=== PATIENT | male | born 1950 | race Caucasian/White ===

== ENCOUNTER → 2018-05-26 14:59 | Outpatient (CLI) | payer MEDICARE, OTHER, SELFPAY ==
--- NOTE | 2018-05-26 | DI.MRI.S_ITS ---
PROCEDURE: MR LUMBAR SPINE WO CON INDICATIONS: LUMBAR STRAIN TECHNIQUE: Noncontrast sagittal T1 spin echo and T2 fast echo, sagittal STIR, axial T1 and T2 fast spin echo through the lumbar spine. In cases with scoliosis, additional coronal T2 fast spin echo may be performed. COMPARISON: [facility], MR, L-SPINE WITHOUT CONTRAST, 01/23/2017, 12:00. FINDINGS: Image quality: Excellent. Alignment and Curvature: There is normal bony alignment. Bone Marrow: Marrow is of normal overall signal. No acute vertebral body compression fractures. Spinal Cord: Conus medullaris terminates at the T12 level. Visualized cord demonstrates normal signal and size. Paraspinous Soft Tissues: No paravertebral masses. L1-L2: Mild disc bulge. Mild facet and ligamentum flavum hypertrophy. No canal stenosis. No neural foraminal narrowing. L2-L3: Mild disc desiccation and height loss. Broad-based disc bulge. Moderate facet and ligamentum flavum hypertrophy. Mild canal stenosis. Mild right foraminal stenosis. No left neuroforaminal narrowing. L3-L4: Moderate disc desiccation and height loss. Broad-based disc bulge. Moderate facet and ligamentum flavum hypertrophy. No canal stenosis. Mild right and moderate left foraminal stenosis. L4-L5: Broad-based disc bulge. Moderate facet and ligamentum flavum hypertrophy. Mild canal stenosis. Moderate bilateral neural foraminal stenosis. L5-S1: Mild disc bulge. Moderate facet sclerosis. No canal stenosis. Severe bilateral foraminal stenosis. IMPRESSION: 1. Multilevel disc desiccation and height loss most severe at L3-4. 2. Multilevel broad-based disc bulges and facet and ligamentum flavum hypertrophy with resultant mild canal stenosis at L2-3 and L4-5. 3. Moderate left foraminal stenosis at L3-4, moderate bilateral foraminal stenosis at L4-5, and severe bilateral foraminal stenosis at L5-S1. Dictated by: Vivien Morrell M.D. on 05/26/2018 at 16:37 Approved by: Vivien Morrell M.D. on 05/26/2018 at 16:41
== END ==
PROVIDERS: PCP Family Medicine; Visit Provider Orthopaedic Surgery
DX: S39.012A Strain of muscle, fascia and tendon of lower back, initial encounter (principal); M51.26 Other intervertebral disc displacement, lumbar region; M48.061 Spinal stenosis, lumbar region without neurogenic claudication; M48.07 Spinal stenosis, lumbosacral region
CPT/HCPCS: 72148

== ENCOUNTER → 2019-03-25 15:44 | Outpatient (CLI) | payer MEDICARE, OTHER, SELFPAY | PROVIDERS: PCP Family Medicine; Visit Provider Physician Assistant | DX: L72.3 Sebaceous cyst (principal) | CPT/HCPCS: 87070; 87075; 87205 ==

== ENCOUNTER → 2019-05-17 07:00 | Outpatient (CLI) | payer MEDICARE, OTHER, SELFPAY ==
[2019-05-17 07:54] LABS: Alanine Aminotransferase 48 IU/L (21-72); Albumin 4.2 g/dL (3.5-5.0); Albumin Globulin Ratio 1.8 (1.0-2.8); Alkaline Phosphatase 68 U/L (38-126); Aspartate Aminotransferase 43 IU/L (17-59); BUN Creatinine Ratio 18.6 (6-22); Bilirubin Total 0.5 mg/dL (0.2-1.3); Blood Urea Nitrogen 13 mg/dL (9-20); Calcium 9.1 mg/dL (8.4-10.2); Carbon Dioxide 24 mmol/L (22-32); Chloride 106 mmol/L (98-107); Cholesterol 206 mg/dL (140-199); Estimated Glomerular Filt Rate > 60.0 mL/min (>60); Globulin 2.4 g/dL (1.7-4.1); Glucose 124 mg/dL (80-110); HDL Cholesterol 62 mg/dL (40-60); HEMOLYSIS < 15 (0-50); LDL Cholesterol Calculated 131 mg/dL (<100); Potassium 4.2 mmol/L (3.4-5.1); Sodium 139 mmol/L (137-145); Total Protein 6.6 g/dL (6.3-8.2); Triglycerides 67 mg/dL (35-150)
[2019-05-17 08:25] LABS: Prostate Specific Antigen Scrn 2.03 ng/mL (0.1-4.0)
[2019-05-17 08:29] LABS: Free T3, Triiodothyronine Free 3.45 pg/mL (2.77-5.27); Free T4, Direct Thyroxine 0.91 ng/dL (0.78-2.19)
[2019-05-17 08:42] LABS: Thyroid Stimulating Hormone 1.22 uIU/mL (0.47-4.68)
== END ==
PROVIDERS: PCP Nurse Practitioner; Visit Provider Nurse Practitioner
DX: Z12.5 Encounter for screening for malignant neoplasm of prostate (principal); Z13.1 Encounter for screening for diabetes mellitus; Z13.6 Encounter for screening for cardiovascular disorders; R63.4 Abnormal weight loss
CPT/HCPCS: 36415; 80053; 80061; 84439; 84443; 84481; G0103

== ENCOUNTER → 2019-05-24 07:57 | Outpatient (CLI) | payer MEDICARE, OTHER, SELFPAY ==
[2019-05-24 09:16] LABS: Hemoglobin A1C% w Est Avg Glu 5.3 % (4.0-6.0)
[2019-05-24 09:23] LABS: Glucose 121 mg/dL (80-110)
== END ==
PROVIDERS: PCP Nurse Practitioner; Visit Provider Nurse Practitioner
DX: R73.01 Impaired fasting glucose (principal)
CPT/HCPCS: 36415; 82947; 83036

== ENCOUNTER → 2019-09-14 06:54 | Outpatient (CLI) | payer MEDICARE, OTHER, SELFPAY ==
[2019-09-14 08:36] LABS: Hemoglobin A1C% w Est Avg Glu 5.2 % (4.0-6.0)
[2019-09-14 08:39] LABS: Glucose 124 mg/dL (80-110)
== END ==
PROVIDERS: PCP Nurse Practitioner; Visit Provider Nurse Practitioner
DX: R73.9 Hyperglycemia, unspecified (principal)
CPT/HCPCS: 36415; 82947; 83036

== ENCOUNTER → 2019-10-26 15:50 | Outpatient (CLI) | payer MEDICARE, OTHER, SELFPAY ==
--- NOTE | 2019-10-26 | DI.MRI.S_ITS ---
PROCEDURE: MR LUMBAR SPINE WO/W CON INDICATIONS: Other intervertebral disc degeneration TECHNIQUE: Noncontrast sagittal T1 spin echo and T2 fast spin echo, sagittal STIR, axial T1 and T2 fast spin echo through the lumbar spine. In cases with scoliosis, additional coronal T2 fast spin echo may be performed. After the administration of contrast, sagittal and axial T1 spin echo with fat saturation through the lumbar spine. COMPARISON: [facility], MR, MR LUMBAR SPINE WO CON, 05/26/2018, 15:18. [facility], CR, XR LUMBAR SPINE 2 OR 3 VIEWS, 10/14/2019, 14:10. FINDINGS: Image quality: Excellent. Alignment and curvature: 5 lumbar type vertebral bodies are present by plain film. Mild grade 1 retrolisthesis of L2 on L3, L3 on L4, and L5 on S1. Marrow: Marrow is of normal overall signal. No acute vertebral body compression fractures. No suspicious marrow enhancement. Mild reactive signal within the endplates adjacent to the L2-L3, L3-L4, and L5-S1 intervertebral discs. Posterior L2 hemangioma. Spinal cord: Conus medullaris terminates at the L1-L2 disc space level. Visualized spinal cord demonstrates normal signal, without suspicious enhancement. Paraspinous soft tissues: No paravertebral masses or abnormal enhancement. L1-L2: Mild facet and ligament flavum hypertrophy. Mild epidural lipomatosis. Mild canal stenosis. No foraminal stenosis. No change. L2-L3: Mild disc desiccation and diffuse disc bulge. Mild facet and ligamentum flavum hypertrophy bilaterally. Mild epidural lipomatosis. Mild canal stenosis. Mild bilateral foraminal stenosis. L3-L4: Mild disc height loss. Moderate disc desiccation. Mild diffuse disc bulge/osteophyte. Mild facet hypertrophy bilaterally. Mild epidural lipomatosis. Mild canal stenosis. Mild bilateral foraminal stenosis. No change. L4-L5: The mild disc desiccation and diffuse disc bulge. Mild facet and ligamentum flavum hypertrophy bilaterally. Mild canal stenosis. Moderate subarticular foraminal stenosis bilaterally. No change. L5-S1: Moderate disc height loss and desiccation. Mild diffuse disc bulge. Mild bilateral facet hypertrophy. Mild canal stenosis. Moderate subarticular foraminal stenosis bilaterally. No change. IMPRESSION: 1. Multilevel degenerative disc and facet disease, as well as ligamentum flavum hypertrophy and epidural lipomatosis. 2. Mild multilevel canal stenoses. 3. Multilevel foraminal stenoses, worst at L4-L5 and L5-S1 where there are moderate foraminal stenoses. Dictated by: Abdirashid Rodas M.D. on 10/27/2019 at 8:33 Approved by: Abdirashid Rodas M.D. on 10/27/2019 at 8:46
== END ==
PROVIDERS: PCP Nurse Practitioner; Referring Provider Nurse Practitioner; Visit Provider Orthopaedic Surgery
DX: M51.36 Other intervertebral disc degeneration, lumbar region (principal); M51.37 Other intervertebral disc degeneration, lumbosacral region; M48.061 Spinal stenosis, lumbar region without neurogenic claudication; M48.07 Spinal stenosis, lumbosacral region; E88.2 Lipomatosis, not elsewhere classified
CPT/HCPCS: 72158; A9579

== ENCOUNTER → 2021-01-11 12:49 | Outpatient (CLI) | payer MEDICARE, OTHER, SELFPAY ==
--- NOTE | 2021-01-11 | DI.MRI.S_ITS ---
PROCEDURE: MR CERVICAL SPINE WO CON INDICATIONS: Spinal stenosis, cervical region TECHNIQUE: Noncontrast sagittal T1 spin echo and T2 fast spin echo, sagittal STIR, foraminal oblique sagittal T2 fast spin echo, and axial gradient echo or T2 fast spin echo through the cervical spine. COMPARISON: [facility] [place], CR, XR CERVICAL SPINE WITH OBLIQUES, 12/31/2020, 9:44. FINDINGS: Image quality: This examination is limited by involuntary motion artifact. Alignment and Curvature: There is straightening of the normal cervical lordosis. Minimal retrolisthesis is seen at the C5-C6 level. Bone Marrow: Marrow demonstrates normal overall signal. Spinal Cord: Visualized spinal cord has normal size and signal. No cerebellar tonsillar herniation. Paraspinous Soft Tissues: No paravertebral masses. Prevertebral soft tissues are normal in thickness. C2-C3: No significant abnormality is seen. C3-C4: The disc height is well-preserved. Loss of disc signal is seen at this level. A mild degree of generalized disc osteophyte complex is seen. Moderate facet joint hypertrophy is seen. Moderate bilateral neural foraminal narrowing is seen. Minimal central canal narrowing is seen. C4-C5: The disc height is well-preserved. Loss of disc signal is seen at this level. Mild to moderate disc osteophyte complex is seen. Moderate facet joint hypertrophy is seen. There is at least moderate right-sided and [id number] left-sided neural foraminal narrowing seen. Minimal central canal narrowing is seen. C5-C6: Moderate loss of disc height is seen. Loss of disc signal is seen. At least moderate disc osteophyte complex is seen, which is eccentric to the left. Moderate facet joint hypertrophy is seen. There is moderate to severe bilateral neural foraminal narrowing seen. Moderate to severe central canal narrowing is seen, with associated mass effect upon the ventral spinal cord, as on series 4, image 29. C6-C7: [id number] loss of disc height and disc signal can be seen. At least moderate disc osteophyte complex is seen at this level. Uncovertebral joint hypertrophy is seen at this level. Moderate facet hypertrophy is seen, left worse than right. There is moderate to severe bilateral neural foraminal narrowing at this level. Moderate central canal narrowing is seen. There is associated mass effect upon the ventral spinal cord. C7-T1: The disc height and disc signal are relatively well preserved. A mild degree of generalized disc osteophyte complex is seen. Mild facet joint hypertrophy is seen. There is moderate left-sided and mild right-sided neural foraminal narrowing seen. Minimal central canal narrowing is seen. IMPRESSION: Cervical spine degenerative changes are seen, which are worst at C5-C6. Dictated by: Royer Sanchez M.D. on 01/11/2021 at 12:55 Approved by: Royer Sanchez M.D. on 01/11/2021 at 12:59
== END ==
PROVIDERS: PCP Nurse Practitioner; Referring Provider Physical Medicine & Rehabilitation Pain Medicine; Visit Provider Physical Medicine & Rehabilitation Pain Medicine
DX: M48.02 Spinal stenosis, cervical region (principal); M50.322 Other cervical disc degeneration at C5-C6 level
CPT/HCPCS: 72141

== ENCOUNTER → 2021-06-28 18:53 | Outpatient (CLI) | payer MEDICARE, OTHER, SELFPAY | PROVIDERS: PCP Nurse Practitioner; Visit Provider Physician Assistant | DX: L72.9 Follicular cyst of the skin and subcutaneous tissue, unspecified (principal) | CPT/HCPCS: 87070; 87075; 87205 ==

== ENCOUNTER → 2022-02-11 07:43 | Outpatient (CLI) | payer MEDICARE, OTHER, SELFPAY ==
--- NOTE | 2022-02-11 | DI.MRI.S_ITS ---
PROCEDURE: MR LUMBAR SPINE WO CON INDICATIONS: Radiculopathy, lumbar region TECHNIQUE: Noncontrast sagittal T1 spin echo and T2 fast echo, sagittal STIR, and T2 fast spin echo through the lumbar spine. In cases with scoliosis, additional coronal T2 fast spin echo may be performed. COMPARISON: [facility], MR, MR LUMBAR SPINE WO/W CON, 10/26/2019, 16:00. [facility] [place], CR, XR LUMBAR SPINE WITH OBLIQUES PLUS FLEXION EXTENSION, 01/28/2022, 13:13. [facility], MR, MR LUMBAR SPINE WO CON, 05/26/2018, 15:18. FINDINGS: Image quality: Excellent. Alignment and Curvature: 5 lumbar type vertebral bodies are present by plain film. 2 mm of retrolisthesis of L2 on L3 and L3 on L4. 2 mm of retrolisthesis of L5 on S1. Bone Marrow: Marrow is of normal overall signal. No acute vertebral body compression fractures. Spinal Cord: Conus medullaris terminates at the L1-L2 disc space level. Visualized cord demonstrates normal signal and size. Paraspinous Soft Tissues: No paravertebral masses. T12-L1: Normal appearance. L1-L2: Mild facet and ligamentum flavum hypertrophy. Mild epidural lipomatosis. Mild canal stenosis. No foraminal stenosis. No change. L2-L3: Mild disc desiccation and diffuse disc bulge. Mild facet and ligamentum flavum hypertrophy. Mild epidural lipomatosis. Mild canal stenosis and mild bilateral foraminal stenosis. No significant change. L3-L4: Mild disc height loss. Moderate disc desiccation. Mild diffuse disc bulge. Mild facet hypertrophy and epidural lipomatosis. Mild canal stenosis. Increased, moderate to severe left foraminal stenosis with new mild left L3 nerve root compression. No change in mild right foraminal stenosis. L4-L5: Mild disc desiccation and diffuse disc bulge. Mild facet and ligamentum flavum hypertrophy. Mild canal stenosis. Moderate bilateral subarticular foraminal stenosis. No significant change. L5-S1: Moderate disc height loss. Mild disc desiccation and diffuse disc bulge. Mild facet hypertrophy bilaterally. Mild canal stenosis. Increased, moderate to severe bilateral foraminal stenosis. Bilateral L5 nerve root compression, new since the prior examination. IMPRESSION: 1. High-level lumbar 2. Mild multilevel canal stenoses. 3. Multilevel foraminal stenoses, worst at L3-L4 and L4-L5 where there is associated intraforaminal nerve root compression. Recommend correlation with clinical symptoms to ascertain relevance of these findings. Dictated by: Abdirashid Rodas M.D. on 02/11/2022 at 8:44 Approved by: Abdirashid Rodas M.D. on 02/11/2022 at 8:49
== END ==
PROVIDERS: PCP Nurse Practitioner; Referring Provider Physical Medicine & Rehabilitation Pain Medicine; Visit Provider Physical Medicine & Rehabilitation Pain Medicine
DX: M54.16 Radiculopathy, lumbar region (principal); M48.061 Spinal stenosis, lumbar region without neurogenic claudication; M48.07 Spinal stenosis, lumbosacral region
CPT/HCPCS: 72148

== ENCOUNTER → 2022-03-04 10:07 | Outpatient (CLI) | payer MEDICARE, OTHER, SELFPAY ==
--- NOTE | 2022-03-04 | DI.CT.S_ITS ---
PROCEDURE: CT LUMBAR SPINE WO CON INDICATIONS: Spinal stenosis, lumbar region TECHNIQUE: Noncontrast 3 mm thick sections acquired from the T12 level to the sacrum. Sagittal and coronal reformats were constructed. For radiation dose reduction, the following was used: automated exposure control. COMPARISON: [facility], MR, MR LUMBAR SPINE WO CON, 02/11/2022, 7:58. [facility] [place], CR, XR LUMBAR SPINE WITH OBLIQUES PLUS FLEXION EXTENSION, 01/28/2022, 13:13. FINDINGS: Image quality: Excellent. Bones: No acute vertebral body compression fractures. No suspicious lytic or blastic bony lesions. No pars defects. Minimal retrolisthesis is seen at the L5-S1 level. T12-L1: Unremarkable. L1-L2: The disc height is well preserved. Mild disc bulge is seen. Moderate facet joint hypertrophy is seen. Mild to moderate bilateral neural foraminal narrowing can be seen. Moderate central canal narrowing is seen. L2-L3: The disc height is well preserved. Moderate generalized disc bulge is seen. Moderate bilateral neural foraminal narrowing is seen. Moderate central canal narrowing is seen. L3-L4: The disc height is relatively well preserved. Moderate generalized disc bulge is seen. There is at least moderate bilateral neural foraminal narrowing seen. Mild to moderate central canal narrowing is seen. L4-L5: The disc height is well preserved. Moderate generalized disc bulge is seen. Prior right hemilaminectomy change can be seen. At least moderate bilateral neural foraminal narrowing is seen. No central canal narrowing is seen. L5-S1: Mild loss of disc height is seen. Mild to moderate disc bulge is seen. Mild to moderate facet hypertrophy is seen at this level. There is moderate to severe bilateral neural foraminal narrowing. Mild central canal narrowing is seen. Soft tissues: No retroperitoneal masses or hematomas. Visualized aorta is normal in caliber. IMPRESSION: Multiple levels of lumbar spine degenerative change are seen, which are worst inferiorly. Prior right hemilaminectomy can be seen at L4-L5. Dictated by: Royer Sanchez M.D. on 03/04/2022 at 13:57 Approved by: Royer Sanchez M.D. on 03/04/2022 at 14:03
== END ==
PROVIDERS: PCP Nurse Practitioner; Referring Provider Orthopaedic Surgery Orthopaedic Surgery of the Spine; Visit Provider Orthopaedic Surgery Orthopaedic Surgery of the Spine
DX: M48.061 Spinal stenosis, lumbar region without neurogenic claudication (principal); M47.816 Spondylosis without myelopathy or radiculopathy, lumbar region; M47.817 Spondylosis without myelopathy or radiculopathy, lumbosacral region
CPT/HCPCS: 72131

== ENCOUNTER → 2022-04-01 09:42 | Outpatient (CLI) | payer MEDICARE, OTHER, SELFPAY ==
[2022-04-01 11:06] LABS: Hemoglobin A1C% w Est Avg Glu 5.5 % (4.0-6.0)
[2022-04-01 11:10] LABS: Add Manual Diff / Slide Review NO; Basophils Absolute Auto 100 /uL (0-100); Basophils Percent Auto 1.4 % (0-2); Eosinophils Absolute Auto 100 /uL (0-450); Eosinophils Percent Auto 2.7 % (2-4); Lymphocytes Absolute Auto 1700 /uL (1100-4500); Lymphocytes Percent Auto 31.8 % (25-40); Mean Corpuscular HGB Conc 34.9 % (30-36); Monocytes Absolute Auto 400 /uL (0-900); Monocytes Percent Auto 7.6 % (3-14); Neutrophils Absolute Auto 3000 /uL (1500-7000); Neutrophils Percent Auto 56.5 % (50-75); Platelet Count 245 X10^3/uL (150-400); Red Blood Cell Count 4.83 X10^6/uL (4.5-5.9); Red Cell Distribution Width 13.9 % (11.6-14.8); White Blood Cell Count 5.4 X10^3/uL (4.5-11.0)
[2022-04-01 11:11] LABS: BUN Creatinine Ratio 16.1 (6-22); Blood Urea Nitrogen 14 mg/dL (9-20); Calcium 8.7 mg/dL (8.4-10.2); Carbon Dioxide 27 mmol/L (22-32); Chloride 105 mmol/L (98-107); Estimated Glomerular Filt Rate > 60 mL/min (>60); Glucose 109 mg/dL (80-110); HEMOLYSIS < 15 (0-50); Potassium 4.2 mmol/L (3.4-5.1); Sodium 138 mmol/L (137-145)
== END ==
PROVIDERS: PCP Nurse Practitioner; Referring Provider Orthopaedic Surgery Orthopaedic Surgery of the Spine; Visit Provider Orthopaedic Surgery Orthopaedic Surgery of the Spine
DX: Z01.818 Encounter for other preprocedural examination (principal); R73.9 Hyperglycemia, unspecified; Z01.812 Encounter for preprocedural laboratory examination
CPT/HCPCS: 36415; 80048; 83036; 85025; 93005; 93010

== ENCOUNTER → 2022-04-14 09:59 | Outpatient (CLI) | payer MEDICARE, OTHER, SELFPAY ==
[2022-04-14 11:39] LABS: COVID19 -Nasal RAPID Negative (Negative)
== END ==
PROVIDERS: PCP Nurse Practitioner; Referring Provider Orthopaedic Surgery Orthopaedic Surgery of the Spine; Visit Provider Orthopaedic Surgery Orthopaedic Surgery of the Spine
DX: Z20.822 Contact with and (suspected) exposure to COVID-19 (principal)
CPT/HCPCS: 87635; C9803

== ENCOUNTER 2022-04-17 09:39 | Observation (INO) | payer MEDICARE, OTHER, SELFPAY ==
[2022-04-09 08:39] VITALS: BMI 28.3
[2022-04-16] VITALS (13 sets, daily range): BP systolic 110–134; BP diastolic 58–91; PULSE 73–88; RESP 8–78; TEMP 36.1–37; O2SAT 92–97; BMI 28.3
--- NOTE | 2022-04-16 | DI.RAD.S_ITS ---
PROCEDURE: XR LUMBAR SPINE 2-3V INDICATIONS: L4-5 L5-S1 TLIF TECHNIQUE: 2 views of the lumbar spine were acquired. COMPARISON: None. FINDINGS: Intraoperative fluoroscopic images of the lumbar spine were acquired. Spinal fusion hardware of L4 through S1 with bilateral pedicular screws and joe fixation. Interbody spacers noted at L4-5 and L5-S1. IMPRESSION: Fluoroscopic support for lumbar spinal fusion. Please see operative note for further details. Dictated by: Matt Brewer M.D. on 04/17/2022 at 11:04 Approved by: Matt Brewer M.D. on 04/17/2022 at 11:05
[2022-04-16] MEDS: LACTATED RINGERS 1,000 ML 42 ML IV (11:17)
[2022-04-16] MEDS: ACETAMINOPHEN 325 MG TABLET 975 MG PO (11:17)
--- NOTE | 2022-04-16 12:47 | PM.PREOP ---
Pre-operative Note COVID-19 COVID-19 status: Negative Result date/Date tested (Pos, Neg/Pending): 04/15/22 Criteria for continued procedure: Expected advancement of disease process, Possibility delay results in more complex future surgery or treatment, Increased loss of function, Continuing or worsening of significant or severe pain, Deterioration of the patient's condition or overall health and Delay expected to result in less-positive ultimate med/surg outcome Interval Note History & Physical reviewed/Exam performed by Physician: Yes Changes to H&P: No
--- NOTE | 2022-04-16 14:15 | SUR.OPER ---
Prone on spine table, head in foam head support, padded chest and pelvic supports, gel pad at knees, lower legs supported by pillows; nipples, genitalia and toes free of pressure, arms secured on foam padded arm boards at <90 degrees abduction. Tape over blanket at thigh secured to table. POSITION APPROVED BY SURGEON AND ANESTHESIA
[2022-04-16] MEDS: BUPIVACAINE LIPOSOME 266 MG/20 ML VIAL INJ (16:49)
[2022-04-16] MEDS: BUPIVACAINE 0.25% (PF) 30 ML, EPINEPHrine 0.3 MG INJ (16:49)
--- NOTE | 2022-04-16 17:18 | P.OP_ITS ---
Operative Date/Time/Diagnoses Date of procedure: 04/16/22 Time of procedure: 14:00 Pre-op diagnosis: 1. L4-5, L5-S1 spinal stenosis with radiculopathy 2. L4-5, L5-S1 spondylosis with radiculopathy 3. History of lumbar laminectomy Post-op diagnosis: same Procedure & Clinicians Procedure: 1. L4-5, L5-S1 Postero-lateral and posterior interbody fusion 2. L4-5, L5-S1 interbody cage placement. 3. L4-5, L5-S1 decompressive laminectomy with bilateral facetecomies 4. L4-5, L5-S1 Posterior segmental instrumentation 5. [facility] of bone marrow from iliac crest 6. Utilization of microsurgical technique and operating microscope 7. Utilization of robotic assisted navigation Same procedure as scheduled: Yes Indications: Patient has been having chronic back pain and worsening lumbar radiculopathy. Patient failed multiple conservative management with worsening pain weakness and numbness in his lower extremity. Patient has been having difficulty performing activity of daily living. After discussing risks benefits of treatment options, patient elected proceed with surgery. Surgeon: Nasreen Jeter Senior Tax Manager: Radha Garcia Click Yes if Unassisted: No Anesthesia Type: General Operative Notes Closure Type: primary Specimen(s): none sent Prosthetic devices, grafts, tissues, transplants, or devices: Globus CREO MIS screws, RIse cages Applied: catheter Estimated Blood Loss (mL): 100 Blood products transfused: none Procedure in detail: Patient was seen in the preoperative area. Risks and benefits of the surgery was discussed with the patient. Informed consent was obtained from the patient and placed in the chart. Surgical site was marked. Patient was taken to the operative room. General anesthesia was administered. Prophylactic antibiotic was given to the patient less than 30 min before the incision was made. Patient was placed into a prone position on the Shiva table. Patient's back was then prepped and draped in the sterile fashion. Time-out was performed at this time. After patient was prepped and draped, patient's PSIS was palpated and marked bilaterally. Small 1 cm incision was made over the PSIS for placement of the reference probes. Two trocar was placed into the PSIS 1 on each side. The reference probe was attached to the trocar of the reference apparatus. At this time the C-arm imaging was used to confirm AP and lateral of L4-L5, L5- S1 vertebrae and merged the C-arm imaging using the StrikeIron robotic navigation system with the CT of the lumbar spine. After successful merging was completed and confirmed, skin marker was used to silverio out the skin incision using the StrikeIron robotic arm. Bilateral incision was made at this time. Pre templated trajectory was used and guided using the StrikeIron robotic navigation system for bilateral L4, L5, S1 pedicle screw placement. This was done by using the robotic arm to guide the high-speed bur to make a cortical entry point. Next a drill was placed also using the robotic arm and guided using the navigation system drilling partially through bilateral L4, L5 and S1 pedicles. Next L4, L5, S1 pedicle screws it was pre templated and measured was placed onto the power emergency detail driver and inserted into the pedicles bilaterally. After all 6 screws were placed C-arm imaging was taken of both AP and lateral to confirm the placement. Excellent placement of the screws were confirmed and a matched precisely with the pre planned screw placement using the navigation system. MARs retractor was inserted using Teleusivation guidence. Globus MARS retractors was placed inside the incision and docked onto the L4 and L5 lamina. Using microsurgical technique and operating microscope, a L4, L5 laminectomy and L4-5, L5-S1 facetectomy was performed using a Kerrison rongeur. Patient was found have severe lateral recess and neural foramen stenosis which was fully decompressed after the laminectomy facetectomy. More than 75% of the facets were removed during the process of decompression rendering L4-5, L5-S1 level grossly unstable and required a fusion procedure at the same time. The disc space at L4-5, L5-S1 was identified, and a total diskectomy was performed at L4- 5, L5-S1 level. The endplates were decorticated using a rasp and shaver. The total diskectomy and decortication was performed at L4-5, L5-S1 level in order to to accomplish a L4-5, L5-S1 fusion. The local bone from the laminectomy and facetectomy was saved for local bone grafting. After the total diskectomy and decortication was completed, Trifecta bone graft material was combined with local bone that was harvested earlier. At this time, a separate skin is incision was made over the iliac crest. A Jamshidi needle was inserted into the iliac crest through a separate skin incision. 5 cc of bone marrow aspiration was obtained through the separate skin incision using a Jamshidi needle from the iliac crest. The bone marrow aspiration was combined with local bone and the Trifecta bone grafting material. The bone grafting material was placed into the L4-5, L5-S1 interbody space along with a expandable cage. The cage was expanded to its maximum height using the torque limiting screwdriver. The disc preparation as well as the cage insertion were also performed under navigation guidance. After the cage was placed, AP and lateral C-arm imaging was taken to confirm placement of the cage and excellent position was confirmed. Globus MARS retractor was inserted and docked onto the L4-5, L5-S1 posterolateral gutter on the right side. Using the power drill, posterior- lateral decortication was performed at L4-5, L5-S1 level until bleeding cortical bone was identified. The remaining bone grafting material was placed into the L4-5, L5-S1 posterior lateral gutter he order to accomplish posterolateral fusion at the L4-5, L5-S1 level. At this time the tulips were attached to the L4, L5, S1 pedicle screw shanks. After measuring the length of the rods, they were inserted into the tulips of the pedicle screws and locked in place using locking caps and torque limiting screwdriver bilaterally. Total 6 caps and 2 titanium rods was used in order to complete the posterior instrumentation construct. After all the hardware was placed, and confirmed with AP and lateral C-arm imaging, the wound was then irrigated with sterile normal saline and packed with Ray-Olamide gauze for 3 min to accomplish hemostasis. After the gauze was removed the deep fascia was closed with #1 Vicryl suture. The subcutaneous layer was closed with 2-0 Vicryl. The skin was closed with skin luis. Patient tolerated the procedure well. There were no complications. Neuro monitoring system was used to monitor patient's neurologic status throughout entire procedure. There was no disturbance of the neural monitoring signals throughout the case. Complications: none Post-operative Condition: stable Disposition: PACU Plan for aftercare: Admit to inpatient hospital
[2022-04-16] MEDS: HYDROMORPHONE 2 MG INJ IV ×2 (17:48→17:54)
[2022-04-16] MEDS: hydrOXYzine 50 MG/ML INJ 25 MG IM (17:51)
[2022-04-16] MEDS: OXYCODONE IR 5 MG TABLET PO (17:56)
[2022-04-16] MEDS: HYDROMORPHONE 0.5 MG INJ IV (19:01)
[2022-04-16] MEDS: SODIUM CHLORIDE 0.9% 1,000 ML 100 ML IV (19:05)
[2022-04-16] MEDS: hydrOXYzine pamoate 25 MG CAPSULE PO (19:13)
[2022-04-16] MEDS: CEFAZOLIN 2 GM/100 ML PREMIX 100 ML IV (19:13)
[2022-04-16] MEDS: ACETAMINOPHEN 325 MG TABLET 650 MG PO (19:13)
--- NOTE | 2022-04-16 19:32 | PC.NURSE ---
Pt arrived to Room 208 from PACU at 1830, settled in to room. VSS, on 1 LNC. Oriented to room and call light as well as educated about no bending, lifting, or twisting. Pt tolerates sips of ice water.NS hung at 100ml/hr with IV antibiotics. Pt reports significant pain 70/10 to back but drowsy and falling back to sleep on and off. Easily awakened, OX3.Medicated with PRN pain medications. at bedside supportive. Call light in place, bed alarm on. Endorsed admission completion to oncoming RN.
--- NOTE | 2022-04-16 19:44 | PC.NURSE ---
Pt. was admitted to the floor @ 1830, C/O pain, medicated with Dilaudid IV. When I was going to admit him he was very sleepy, but awakens easily, but falls back to sleep. His spouse answered all the admit assessment. Will cont. POC & monitor.
[2022-04-16] MEDS: SENNOSIDES 8.6 MG TABLET 17.2 MG PO (21:18)
[2022-04-16] MEDS: DOCUSATE 100 MG CAPSULE PO (21:18)
[2022-04-16] MEDS: OXYCODONE IR 5 MG TABLET 10 MG PO (22:12)
[2022-04-17] MEDS: CEFAZOLIN 2 GM/100 ML PREMIX 100 ML IV (02:08)
[2022-04-17 04:00] VITALS: BP 137/78; PULSE 83; RESP 18; TEMP 36.6; O2SAT 97
[2022-04-17] MEDS: OXYCODONE IR 5 MG TABLET 10 MG PO ×3 (04:23→11:34)
[2022-04-17] MEDS: SODIUM CHLORIDE 0.9% FLUSH 10 ML IV ×2 (06:48→08:11)
[2022-04-17 07:36] LABS: Hematocrit 40.3 % (41-53); Hemoglobin 13.6 g/dL (13.5-17.5)
[2022-04-17] MEDS: ALBUTEROL/IPRATROPIUM 3 ML AMPUL INH (07:45)
[2022-04-17 07:48] VITALS: PULSE 89; RESP 18
[2022-04-17 08:00] VITALS: BP 128/69; PULSE 85; RESP 18; TEMP 37.3
[2022-04-17] MEDS: DOCUSATE 100 MG CAPSULE PO (08:05)
[2022-04-17] MEDS: hydrOXYzine pamoate 25 MG CAPSULE PO ×2 (08:09→11:36)
[2022-04-17] MEDS: ACETAMINOPHEN 325 MG TABLET 650 MG PO (08:09)
--- NOTE | 2022-04-17 08:09 | PM.DS.1 ---
History of Present Illness History of Present Illness Date Patient Seen: 04/17/22 Time Patient Seen: 08:09 Chief complaint: TLIF Narrative: Operative Date/Time/Diagnoses Date of procedure: 04/16/22 Time of procedure: 14:00 Pre-op diagnosis: 1. L4-5, L5-S1 spinal stenosis with radiculopathy 2. L4-5, L5-S1 spondylosis with radiculopathy 3. History of lumbar laminectomy Post-op diagnosis: same Procedure & Clinicians Procedure: 1. L4-5, L5-S1 Postero-lateral and posterior interbody fusion 2. L4-5, L5-S1 interbody cage placement. 3. L4-5, L5-S1 decompressive laminectomy with bilateral facetecomies 4. L4-5, L5-S1 Posterior segmental instrumentation 5. [place] of bone marrow from iliac crest 6. Utilization of microsurgical technique and operating microscope 7. Utilization of robotic assisted navigation Same procedure as scheduled: Yes Indications: Patient has been having chronic back pain and worsening lumbar radiculopathy. Patient failed multiple conservative management with worsening pain weakness and numbness in his lower extremity.? Patient has been having difficulty performing activity of daily living.? After discussing risks benefits of treatment options, patient elected proceed with surgery. Surgeon: Nasreen Jeter Flatwork Finisher Hand: Radha Garcia Click Yes if Unassisted: No Anesthesia Type: General Operative Notes Closure Type: primary Specimen(s): none sent Prosthetic devices, grafts, tissues, transplants, or devices: Globus CREO MIS screws, RIse cages Applied: catheter Estimated Blood Loss (mL): 100 Blood products transfused: none Discharge Providers Provider Discharge Date: 04/17/22 Primary care physician: LUIS F Duran Consults: 04/16/22 18:27 Consult to Occupational Therapy Evaluate & Treat Comment: Physician Instructions: Evaluate and treat Consult to Physical Therapy Evaluate & Treat Comment: Physician Instructions: Evaluate and Treat Discharge provider: Radha Garcia PA-C Summary Hospital Course Discharge Diagnosis: s/p L4-5, L5-S1 transforaminal lumbar interbody fusion w/ posterolateral instrumentation Hospital Course: Mr Robles's hospital course was unremarkable. On POD# 1 he was feeling well and wanted to go home. He complained of back pain and right posterior leg pain; pain was well-controlled with oral medication. He was eating and voiding without difficulty. He was evaluated by PT prior to discharge. He has his spouse at home for help. Exam Vital Signs (past 8 hours): - 04/17/22 04:00 04/17/22 07:48 04/17/22 08:00 Temperature 97.9 F 99.2 F Pulse Rate 83 89 85 Respiratory Rate 18 18 18 Blood Pressure 137/78 128/69 Pulse Oximetry 97 Oxygen Delivery Method Room Air Oxygen Flow Rate 0 Fraction of Inspired Oxygen 98 Fraction of Inspired Oxygen 98 SaO2/FiO2 Ratio 300 Oxygen Delivery Method Room Air Oxygen Flow Rate 0 Narrative Exam Narrative: 5/5 strength in hip flexors, quadriceps, hamstrings, DF, PF, EHL bilaterally. Sensation to light touch intact in BLE. Calves soft, compressible, nontender and without palpable cords or masses. Dressing placed intraoperatively is CDI. Objective Labs Result Diagrams: 04/17/22 07:02 Labs: Laboratory Results - last 24 hr 04/17/22 07:02 Hgb 13.6 Hct 40.3 L PFSH Medical History (Updated 04/09/22 @ 09:09 by Lily Meléndez RN) Arthritis Asthma Chronic back pain Dupuytren's contracture of both hands (07/02/15) Eczema Hearing loss History of colonic polyps (08/25/16) Lipoma of forearm (08/25/16) PTSD (post-traumatic stress disorder) Radicular low back pain (07/02/15) Sciatica Sebaceous cyst (08/25/16) Uses hearing aid Surgical History (Updated 04/17/22 @ 08:15 by Radha Garcia PA-C) History of carpal tunnel surgery of right wrist (2020) History of lumbar surgery (~2017) Hx of colonoscopy Hx of repair of left rotator cuff (2010) Hx of umbilical hernia repair (2011) Social History (Updated 05/12/19 @ 16:18 by Gloria Vizcaino CMA) marital status: household members: spouse pets and animals: Yes education level: college leisure activities: fishing and other other: Grand kid's seatbelt use: always helmet use: Yes water heater temp set < 120 deg: No working smoke detector in home: Yes fire extinguisher in home: Yes carbon monox detector in home: Yes firearms in home: Yes do you feel safe at home: Yes Smoking Status: Former smoker Tobacco: How many years used: 15 quit status: quit date established second hand exposure: No alcohol intake: current substance use type: does not use during the past year weight has: remained stable well-balanced diet: daily or most days daily servings fruits/ve-1 caffeine: Yes (2+ drinks per day, rare on soda) eating out: rarely or never frequency: 1-2 times per week duration: 30-45 minutes/day additional social history: Physical Activities: Great Grand kid's. Disabilities: Hearing loss (Tinnitus), Vision Deficiencies Discharge Assessment & Plan Assessment and Plan Assessment: s/p L4-5, L5-S1 transforaminal lumbar interbody fusion w/ posterolateral instrumentation Plan of Treatment: Discharge home when cleared by PT. Discharge Plan Discharge Plan Patient Disposition: Home Discharge orders & Medications Discharge Orders: Discharge (Order); Ordered 04/17/22 Ordered By: Radha Garcia Prescriptions: New oxycodone 5 mg tablet 5 mg PO Q4H PRN (Reason: pain (scale score 7-10)) Qty: 60 0RF docusate sodium 100 mg Capsule 100 mg PO BID PRN (Reason: constipation) Qty: 60 1RF hydroxyzine pamoate 25 mg Capsule 25 mg PO Q4HR PRN (Reason: muscle spasm) Qty: 120 1RF acetaminophen 325 mg Tablet 650 mg PO Q6HR PRN (Reason: Pain, Mild (1-3)) Qty: 240 1RF Continued triamcinolone acetonide 0.5 % ointment 1 applic topical BID PRN (Reason: itching, rash) Qty: 15 3RF Rx Instructions: Apply to affected area twice daily for up to 2 weeks albuterol sulfate 90 mcg/actuation HFA aerosol inhaler 2 puff INHALATION Q6H PRN (Reason: shortness of breath or wheezing) Qty: 6.7 3RF Rx Instructions: 2 puffs inh q6 hours as needed for shortness of breath, wheezing, cough cyclobenzaprine 10 mg Tablet 10 mg PO BEDTIME PRN (Reason: Pain) Combivent Respimat 20-100 mcg/actuation mist 1 puff INHALATION BID PRN (Reason: Shortness Of Breath Or Wheezing) Follow up/Referrals: Marisol Joya ARNP [Primary Care Provider] - Nasreen Jeter MD [Physician] - As previously scheduled (Follow up w/ Radha Garcia PA-C, on 04/25/2022 @ 2:00 pm at [facility] in [place].) Diet/Activity/Treatments Diet: Diet as Tolerated Activity: No bending more than 90 degrees at the waist. No twisting at the waist. No lifting more than 20 pounds. Cold/Heat Therapy: Ice to back as needed for pain. Skin/Wound/Dressing Care Dressing: May shower. Keep dressing as dry as possible. If dressing becomes wet inside, remove and replace with clean, dry gauze. No bathing or otherwise soaking incisions. Do not apply creams, lotions, or ointments to incisions. Visit Report/Discharge Packet Instructions: DI for Transforaminal Lumbar Interbody Fusion Stand Alone Forms: Surgery Discharge Discharge Data Primary Care Provider: Marisol Joya Attending Provider: Nasreen Jeter
--- NOTE | 2022-04-17 09:38 | OT.IP.EVAL ---
Current Diagnoses Spondylolisthesis, lumbar region (04/16/22) Spinal stenosis, lumbar region with neurogenic claudication (04/16/22) Arthrodesis status (04/16/22) Surgery Performed Operation Date: 04/16/22 12:15 Actual Procedures p L4-5, L5-S1 TLIF w. posterior instrumentation -Robot - Nasreen Jeter MD Past Medical History (Last Updated 04/09/22 @ 09:09 by Lily Meléndez, RN) Arthritis Asthma Chronic back pain Dupuytren's contracture of both hands (07/02/15) Eczema Hearing loss History of colonic polyps (08/25/16) Lipoma of forearm (08/25/16) PTSD (post-traumatic stress disorder) Radicular low back pain (07/02/15) Sciatica Sebaceous cyst (08/25/16) Uses hearing aid Surgical History (Last Updated 04/09/22 @ 09:08 by Lily Meléndez RN) History of carpal tunnel surgery of right wrist (2020) History of lumbar surgery (~2017) Hx of colonoscopy Hx of repair of left rotator cuff (2010) Hx of umbilical hernia repair (2011) Occupational Therapy Inpatient Evaluation/Re-Eval M1 PT/OT-IP Prior Functional Status Start: 04/17/22 09:48 Freq: NEEDED Status: Active Protocol: Document 04/17/22 09:45 [facility] (Rec: 04/17/22 09:49 [facility] [id number]) Medical Review Prior Functional Status Medical History Reviewed Yes Diet/Fluid Consistency Regular Communication [facility] pt did not bring hearing aides Mobility and Gait indep Activities of Daily Living and IADL's indep Social History Household Members spouse Living Arrangements House Number of Floors (Floors) One Floor Number of Stairs To Enter/Railing? no PAOLO Home Environment High Toilet,Walk in Shower Home Equipment Front Wheel Walker,Log Skidder, Grab Bars Near Toilet Employment Status Retired M2 OT-IP Current Condition Start: 04/17/22 11:05 Freq: Status: Active Protocol: Document 04/17/22 08:46 [facility] (Rec: 04/17/22 11:14 [facility] [id number]) Occupational Therapy Current Condition Current Condition Evaluation Date 04/17/22 Treatment Diagnosis S/p L4-5, L5-S1 TLIF Diagnosis Onset Date 8/31/22 Post Operative Precautions Lumbar Precautions Log Roll,No Twisting,Limit Bending,Lifting Restriction of 10 lbs,Gait Belt above Incisional Area M3 OT- IP Subjective and Pain Start: 04/17/22 11:05 Freq: Status: Active Protocol: Document 04/17/22 08:46 [facility] (Rec: 04/17/22 11:14 [facility] [id number]) OT- Subjective Occupational Therapy Visit Type Type Initial Evaluation Visit Start Time 09:56 Visit Stop Time 10:15 Total Visit Minutes 19 Occupational Therapy Visit Comments Patient Comments Pt agreed to work with OT but not wanting to shower prior to going home, but agreed to get dressed. Patient/Caregiver Goals TO go home. OT Pain Assessment Pain When Pain Assessed At Rest Pain Present Pain Present Pain Reported Location back Intensity 3 Scale Used Numeric (0 - 10) M4 OT- IP ADL's Start: 04/17/22 11:05 Freq: Status: Active Protocol: Document 04/17/22 08:46 [facility] (Rec: 04/17/22 11:14 [facility] [id number]) OT [id number] Comments OT Self-Feeding Comments not at meal time OT ADL-Grooming Comments OT Grooming Comments Not performed. OT ADL-Oral Care Comments Oral Care Comments Pt refused, but able to educated best to hinge at his hips or just spit into a cup to best follow his back precautions. OT ADL-Dressing General Eval Upper Body Dressing Ability Independent Lower Body Dressing Ability Minimal Assistance Comments OT Dressing Comments Pt able to practice use of patternmaker plastics and sock aid for LB dressing needs. Pt wears flip flops and suggested best to wear well fitting shoes to prevent from tripping or falling. OT ADL-Toileting Comments OT Toileting Comments Pt able to simulate to reach back appropriately while standing. OT ADL-Bathing Comments OT Bathing Comments Pt refused but will benefit from use of a shower chair at home. Educated to cover the dressing with plastic and best to have assist for showering needs. M5 OT- IP IADL's Start: 04/17/22 11:05 Freq: Status: Active Protocol: Document 04/17/22 08:46 [facility] (Rec: 04/17/22 11:14 [facility] [id number]) OT-Instrumental Activities of Daily Living Home Safety Awareness Awareness of Need for Assistance at Home Good Awareness Ability to Problem Solve Emergency Able to Problem Solve Situations Home Safety Comments Pt has a supportive that will assist with his needs at home. Medication Management Medication Management Caregiver Administers Money Management Money Management Caregiver Provides Assistance Meal Preparation Meal Preparation Caregiver Provides Assist Remote Encoding Center Manager Remote Encoding Center Manager Caregiver Provides Assist M6 OT- IP Functional Cognition Start: 04/17/22 11:05 Freq: Status: Active Protocol: Document 04/17/22 08:46 [facility] (Rec: 04/17/22 11:14 [facility] [id number]) Cognitive Factors Limiting Selfcare Function Cognitive Ability Level of Alertness Alert Patient Orientation Name,Age,Birthday,Month,Date, Year,Day of Week,Place, Situation Attention Span Ability Capable of Focused Attention, Capable of Sustained Attention Ability to Follow Commands Able to Follow One Step Commands Memory Description No Deficits Noted Safety Awareness No Deficits Noted Cognitive Comments Cognitive Assessment Comments Intact for needs. OT- Vision and Hearing OT- Hearing Assessment OT- Hearing Assessment Use of Hearing Aids OT- Vision Assessment Visual Acuity Glasses All The Time M7 OT- IP Mobility and Balance Start: 04/17/22 11:05 Freq: Status: Active Protocol: Document 04/17/22 08:46 [facility] (Rec: 04/17/22 11:14 [facility] [id number]) OT-Transfer Assessment Sit to and From Stand Sit to and from Stand Standby Assistance Transfers Transfer Ability Standby Assistance Technique Transfer Destination Chair Comments Mobility Comments SBA with FWW OT- Balance Assessment Sitting Balance and Reactions Static Sitting Balance Ability Normal Dynamic Sitting Balance Ability Good Standing Balance and Reactions Static Standing Balance Ability Good Dynamic Standing Balance Ability Good M8 OT- IP Objective Assessments Start: 04/17/22 11:05 Freq: Status: Active Protocol: Document 04/17/22 08:46 [facility] (Rec: 04/17/22 11:14 [facility] [id number]) OT-Muscle Tone Assessment Muscle Tone WNL Yes M9 OT- IP Assessment and Plan Start: 04/17/22 11:05 Freq: Status: Active Protocol: Document 04/17/22 08:46 [facility] (Rec: 04/17/22 11:14 [facility] [id number]) OT Summary Assessment and Plan Potential Rehabilitation Potential Excellent Analytic Complexity at Evaluation Low Summary OT Impairments Pain,Dressing,Bathing Progress Towards Goals Progressing Toward Goals Assessment Summary Pt low complexity and main barriers are pain and will now need assist for ADL and IADL needs. Able to go over equipment needs and back precautions for ADl and mobility. Pt to go home with his when medically stable . Pt will greatly benefit from a shower chair at home to use and to be careful of the multiple dogs at home when getting around. Goals Grooming Goal Independent Dressing Goal Independent Toileting Goal Independent Bathing Goal Independent Toilet Transfer Goal Independent Shower Transfer Goal Independent Days to Meet Goals 3 Frequency of Treatment Frequency Of Treatment Once a Day Treatment Plan OT Treatment Plan ADL Training,Functional Mobility,Patient/Family Education,Discharge Planning Discharge Recommendations OT Discharge Recommendations Home with Assistance Home Equipment Needs shower chair Transportation Needs at Discharge Private Vehicle
--- NOTE | 2022-04-17 09:45 | PT.IIE ---
Current Diagnoses Spondylolisthesis, lumbar region (04/16/22) Spinal stenosis, lumbar region with neurogenic claudication (04/16/22) Arthrodesis status (04/16/22) Surgery Performed Operation Date: 04/16/22 12:15 Actual Procedures p L4-5, L5-S1 TLIF w. posterior instrumentation -Robot - Nasreen Jeter MD Surgical History (Last Updated 04/09/22 @ 09:08 by Lily Meléndez, RN) History of carpal tunnel surgery of right wrist (2020) History of lumbar surgery (~2017) Hx of colonoscopy Hx of repair of left rotator cuff (2010) Hx of umbilical hernia repair (2011) Medical History (Last Updated 04/09/22 @ 09:09 by Lily Meléndez RN) Arthritis Asthma Chronic back pain Dupuytren's contracture of both hands (07/02/15) Eczema Hearing loss History of colonic polyps (08/25/16) Lipoma of forearm (08/25/16) PTSD (post-traumatic stress disorder) Radicular low back pain (07/02/15) Sciatica Sebaceous cyst (08/25/16) Uses hearing aid Physical Therapy Inpatient Evaluation/Re-Eval M1 PT/OT-IP Prior Functional Status Start: 04/17/22 09:48 Freq: NEEDED Status: Discharge Protocol: Document 04/17/22 09:45 [facility] (Rec: 04/17/22 09:49 [facility] [id number]) Medical Review Prior Functional Status Medical History Reviewed Yes Diet/Fluid Consistency Regular Communication [facility] pt did not bring hearing aides Mobility and Gait indep Activities of Daily Living and IADL's indep Social History Household Members spouse Living Arrangements House Number of Floors (Floors) One Floor Number of Stairs To Enter/Railing? no PAOLO Home Environment High Toilet,Walk in Shower Home Equipment Front Wheel Walker,Sheriff'S Sergeant, Grab Bars Near Toilet Employment Status Retired M2 PT-IP Current Condition Start: 04/17/22 09:48 Freq: NEEDED Status: Discharge Protocol: Document 04/17/22 09:45 [facility] (Rec: 04/17/22 12:26 [facility] [id number]) Physical Therapy Current Condition Current Condition Evaluation Date 04/17/22 Treatment Diagnosis TLIF L4-S1 M3 PT-IP Subjective Start: 04/17/22 09:48 Freq: NEEDED Status: Discharge Protocol: Document 04/17/22 09:45 [facility] (Rec: 04/17/22 12:26 [facility] [id number]) Subjective Physical Therapy Visit Type Type Initial Evaluation Visit Start Time 09:15 Visit Stop Time 09:45 Total Visit Minutes 30 Number of WREATH MACHINE TENDER Visits 0 Physical Therapy Visit Comments Patient Goals return home today M4 PT-IP Mobility and Gait Start: 04/17/22 09:48 Freq: NEEDED Status: Discharge Protocol: Document 04/17/22 09:45 [facility] (Rec: 04/17/22 12:26 [facility] [id number]) PT-Bed Mobility Assessment Rolling Type of Rolling Log Rolling Level of Assist Independent Supine to Sit Supine to Sit Independent Scooting Scooting to Edge of Bed Independent Scooting Up and Down in Bed Independent PT-Transfer Assessment Sit to and From Stand Sit to and from Stand Standby Assistance,Use of Upper Extremities Equipment Transfer Assistive Device Gait Belt,Front Wheeled Walker Orthotic/Prosthetic Devices or Brace: No Comments Mobility Comments indep w/log roll to R and sit to EOB. Pt was dizzy but BP was 124/75 and he reported dizziness subsided w/drinking water and sitting EOB. No inc dizziness w/standing and pt was SBA to stand and amb to bathroom w/FWW SBA and SBA up/ down from toilet. Amb 150ft SBA w/FWW. Pt left in chair w/ call light in reach. Gait Assessment Gait Gait Assistance Required: Standby Assistance Distance (Feet) 150 Able to Maintain Weight Bearing Status Yes During Gait Assistive Devices Assistive Device Gait Belt,Front Wheeled Walker Orthotic/Prosthetic Devices or Brace: No Gait Deviations General Gait Pattern Decreased Stride Length Factors Limiting Gait Function Factors Limiting Gait Function Pain PT-Balance Assessment Sitting Balance and Reactions Static Sitting Balance Ability Normal Dynamic Sitting Balance Ability Normal Standing Balance and Reactions Static Standing Balance Ability Good Dynamic Standing Balance Ability Good Device Used FWW M5 PT-IP Objective Assessments Start: 04/17/22 09:48 Freq: NEEDED Status: Discharge Protocol: Document 04/17/22 09:45 [facility] (Rec: 04/17/22 12:26 [facility] [id number]) Orientation Orientation/Cognition Level of Alertness Alert Safety Awareness Understands Safety Issues Memory Description No Deficits Noted Gross Range of Motion Lower Extremity ROM Assessment Within Functional Limits M6 PT-IP Treatment Start: 04/17/22 09:48 Freq: NEEDED Status: Discharge Protocol: Document 04/17/22 09:45 [facility] (Rec: 04/17/22 12:26 [facility] [id number]) Physical Therapy Treatment Education Education Provided Precautions,Weight Bearing Status,Post-Op Packet,Safety Other Treatments Other Treatment Performed edu re: log roll, edu on how to dress/bath w/o bending/ twisting, edu to not get up if feels dizzy and wait for it to subside M7 PT-IP Assessment and Plan Start: 04/17/22 09:48 Freq: NEEDED Status: Discharge Protocol: Document 04/17/22 09:45 [facility] (Rec: 04/17/22 12:26 [facility] [id number]) PT Summary Assessment and Plan Potential Rehabilitation Potential Good Status of Condition at Evaluation Stable Summary Impairments Pain,Strength,Balance, Transfers,Gait,Activity Tolerance Assessment Summary Pt is day 1 s/p L4-S1 TLIF w/ good pain control and good motivation to return home where he will have the assistance of his . Pt understands precuations, showed good mechanics w/ movement and did not require much cues or any physical assist w/mobility. he is set up at home and verbalizes understanding w/safety. DC at this time. Goals Bed Mobility Goal Independent Transfer Goal Independent Gait Goal Independent Frequency of Treatment Frequency Of Treatment Discharge Treatment Plan Physical Therapy Treatment Plan Bed Mobility Training,Transfer Training,Gait Training, Therapeutic Exercise,Balance Retraining,Post Op Education Precautions Lumbar Precautions Log Roll,No Twisting,Limit Bending,Lifting Restriction of 10 lbs,Gait Belt above Incisional Area Weight Bearing Status Weight Bearing Status Full Weight Bearing Recommendations To Nursing Amount of Assist Needed Standby Assistance Discharge Recommendations PT Discharge Recommendations Home with Assistance Transportation Needs at Discharge Private Vehicle
--- NOTE | 2022-04-17 11:17 | PC.NURSE ---
Pt is A&OX3, VSS, afebrile on RA. He reports pain well controlled with PRN oxycodone, tylenol and vesteril this a.m. bringing back pain from 02/23 to 10/24. PA at bedside this a.m. evaluating patient and clearing him for discharge home pending PT/OT. He is able to participate in therapy and cleared for discharge home this a.m. He verbalizes understanding of medications, activity, s/sx of infection/worsening symptoms (and to notify provider), site care, and follow up appointments. He is escorted via w/ch to private vehicle with his this a.m. at 1145 for discharge home with all of his belongings.
--- NOTE | 2022-04-17 15:45 | CM.IDA ---
Initial DCP Assessment Note Pt is a 71 yo male, resident of [place], now POD#1 from spinal surgery by Dr Jeter PCP: Marisol Joya Payer: [facility] Reviewed chart, pt discussed in multidisciplinary rounds this morning. Therapy has cleared pt for return home w/family to assist and pt has planned for home, DC order from Ortho has already been initiated this morning. No barriers identified at this time to patient's safe discharge home w/family to assist; close outpatient f/u recommended. CHASE Barber
== END 2022-04-17 11:45 | disposition home or self-care (01) ==
LOC: OR 15:21 → AC 15:22
PROVIDERS: Admitting Provider Orthopaedic Surgery Orthopaedic Surgery of the Spine; PCP Nurse Practitioner; Referring Provider Orthopaedic Surgery Orthopaedic Surgery of the Spine; Visit Provider Orthopaedic Surgery Orthopaedic Surgery of the Spine
PROC: (CPT 22633; principal; 2022-04-16 12:15)
DX: M48.062 Spinal stenosis, lumbar region with neurogenic claudication (principal); M43.16 Spondylolisthesis, lumbar region; M47.26 Other spondylosis with radiculopathy, lumbar region; Z98.1 Arthrodesis status; J45.909 Unspecified asthma, uncomplicated
CPT/HCPCS: 22633; 22634; 22853 ×2; 63052; 63053; 20939; 22842; 36415; 72100; 76000; 82962; 85014; 85018; 94640; 94760; 97161; 97165; 97535; G0378; C1831; C9290; J0171; J0330; J0690; J1100; J1170; J2250; J2405; J2704; J3010; J3410

== ENCOUNTER → 2022-06-05 16:44 | Outpatient (CLI) | payer MEDICARE, OTHER, SELFPAY ==
[2022-04-16 19:30] VITALS: BMI 28.3
--- NOTE | 2022-06-05 16:51 | DI.US.S_ITS ---
PROCEDURE: US PERIPH VENOUS LOW EXTREM LT INDICATIONS: SWELLING POST SURGERY TECHNIQUE: Real-time imaging, as well as color and pulse Doppler interrogation, were performed of the lower extremity deep veins from the inguinal ligament to the popliteal fossa. COMPARISON: None. FINDINGS: The common femoral, femoral and popliteal veins are normally compressible, and free of intraluminal thrombus. Color and pulse Doppler demonstrate normal phasic intraluminal flow. There is normal augmentation response to distal compression maneuver. IMPRESSION: 1. No DVT in the left lower extremity. Dictated by: Lizeth Camara M.D. on 06/05/2022 at 17:18 Approved by: Lizeth Camara M.D. on 06/05/2022 at 17:20
== END ==
PROVIDERS: PCP Nurse Practitioner; Referring Provider Physician Assistant; Visit Provider Physician Assistant
DX: M79.89 Other specified soft tissue disorders (principal); Z98.890 Other specified postprocedural states
CPT/HCPCS: 93971

== ENCOUNTER → 2022-07-22 13:22 | Outpatient (CLI) | payer MEDICARE, OTHER, SELFPAY ==
[2022-04-16 19:30] VITALS: BMI 28.3
--- NOTE | 2022-07-22 | DI.CT.S_ITS ---
PROCEDURE: CT LUMBAR SPINE WO CON INDICATIONS: Spinal stenosis, lumbar region without neurogenic claudicati TECHNIQUE: Noncontrast 3 mm thick sections acquired from the T12 level to the sacrum. Sagittal and coronal reformats were constructed. For radiation dose reduction, the following was used: automated exposure control. COMPARISON: [facility], MR, MR LUMBAR SPINE WO CON, 02/11/2022, 7:58. [facility], CR, XR LUMBAR SPINE 2 OR 3 VIEWS, 06/05/2022, 15:02. [facility], CR, XR LUMBAR SPINE 2 OR 3 VIEWS, 05/27/2022, 13:17. [facility], CR, XR LUMBAR SPINE 2-3V, 04/16/2022, 16:40. [facility], CT, CT LUMBAR SPINE WO CON, 03/04/2022, 10:12. FINDINGS: Image quality: Diagnostic Bones: Postoperative changes are seen, with bilateral pedicle screws at the L4, L5, and S1 levels. The screws appear well placed. Vertical fixation rods are seen. Disc spacers are seen at the L4-L5 and the L5-S1 levels. No findings of hardware failure or hardware loosening are seen. There has been removal of portions of the posterior elements. No acute appearing fractures are seen. No suspicious lytic or blastic lesions can be seen. There is normal bony alignment. No acute vertebral body compression fractures. No suspicious lytic or blastic bony lesions. No pars defects. Multiple levels of degenerative change are seen, which appear similar to the preoperative CT. Soft tissues: No retroperitoneal masses or hematomas. Visualized aorta is normal in caliber. IMPRESSION: Unremarkable L4 through S1 postoperative hardware, without complication observed. Dictated by: Royer Sanchez M.D. on 07/22/2022 at 16:40 Approved by: Royer Sanchez M.D. on 07/22/2022 at 16:45
== END ==
PROVIDERS: PCP Nurse Practitioner; Referring Provider Orthopaedic Surgery Orthopaedic Surgery of the Spine; Visit Provider Orthopaedic Surgery Orthopaedic Surgery of the Spine
DX: M48.061 Spinal stenosis, lumbar region without neurogenic claudication (principal); Z98.1 Arthrodesis status
CPT/HCPCS: 72131

== ENCOUNTER → 2022-10-21 09:24 | Outpatient (CLI) | payer MEDICARE, OTHER, SELFPAY ==
[2022-08-25 08:33] VITALS: BMI 28.3
[2022-10-21 11:33] LABS: Hep C Virus Ab w/Reflex Quant NEGATIVE s/c (NEGATIVE)
== END ==
PROVIDERS: PCP Nurse Practitioner; Referring Provider Nurse Practitioner; Visit Provider Nurse Practitioner
DX: Z12.5 Encounter for screening for malignant neoplasm of prostate (principal); Z11.59 Encounter for screening for other viral diseases
CPT/HCPCS: 36415; 86803; G0103

== ENCOUNTER → 2022-10-27 09:30 | Outpatient (CLI) | payer MEDICARE, OTHER, SELFPAY ==
[2022-08-25 08:33] VITALS: BMI 28.3
[2022-10-28 10:11] LABS: Fecal Immunochemical Test Negative (Negative)
== END ==
PROVIDERS: PCP Nurse Practitioner; Referring Provider Nurse Practitioner; Visit Provider Nurse Practitioner
DX: Z12.11 Encounter for screening for malignant neoplasm of colon (principal)
CPT/HCPCS: 82274

== ENCOUNTER 2022-11-11 08:28 | Outpatient (CLI) | payer MEDICARE, OTHER, SELFPAY ==
[2022-08-25 08:33] VITALS: BMI 28.3
[2022-11-11] VITALS (7 sets, daily range): BP systolic 130–146; BP diastolic 69–79; PULSE 72–83; RESP 12–20; TEMP 36.8; O2SAT 96–99
--- NOTE | 2022-11-11 08:29 | DI.RAD.S_ITS ---
PROCEDURE: PAIN L INTERLAMINAR/CAUDAL INJ INDICATIONS: SPONDYLOSIS COMPARISON: [facility], CR, XR LUMBAR SPINE 2 OR 3 VIEWS, 10/21/2022, 11:35. FINDINGS: Fluoroscopic spot filming was performed to verify placement of a spinal needle at the L5-S1 level, as labeled on the films. Appropriate location of the needle tip was confirmed by injection of iodinated contrast. IMPRESSION: No significant intraprocedural abnormality. Dictated by: Royer Sanchez M.D. on 11/11/2022 at 9:32 Approved by: Royer Sanchez M.D. on 11/11/2022 at 9:33
[2022-11-11] MEDS: MIDAZOLAM 2 MG/2 ML VIAL IV (09:47)
[2022-11-11] MEDS: IOPAMIDOL 15 ML VIAL 3 ML INJ (09:52)
[2022-11-11] MEDS: DEXAMETHASONE 10 MG/ML VIAL 20 MG INJ (09:53)
[2022-11-11] MEDS: BETAMETHASONE 30 MG/5 ML MDV 6 MG INJ (09:53)
[2022-11-11] MEDS: BUPIVACAINE 0.25% (PF) VIAL 2 ML INJ (09:54)
--- NOTE | 2022-11-11 10:05 | P.PCN_ITS ---
Date/Time/Diagnoses Date of procedure: 11/11/22 Time of procedure: 10:05 Pre-procedure diagnosis: 1. HNP WITH RADICULAR FEATURES, 2. MULTILEVEL CENTRAL STENOSIS, Post-procedure diagnosis: same Procedure Notes Procedure: 1. FLUOROSCOPICALLY GUIDED CONTRAST CONTROLLED INTERLAMINAR EPIDURAL STEROID INJECTION - L5/S1 Indications: Marcial is referred by LUIS F Joya for treatment of Bilateral Foraminal Stenosis L>R LE symptoms. Physician: Marcial Jones Total Fluoroscopy time (seconds): 10 Total sedation minutes: 14 Complications: none Procedure in detail & Post-procedure care: FINDINGS Multilevel Central Spinal Stenosis with Nerve Root Compression DESCRIPTION OF PROCEDURE Fluoroscopically guided, contrast-controlled L5/S1 translaminar epidural steroid injection. Following review of allergy and review of potential side effects and complications, including, but not necessarily limited to, infection, allergic reaction, local tissue breakdown, temporary as well as permanent nerve injury, paralysis, stroke and possible , the patient indicated that the patient understood and agreed to proceed. An informed consent document was signed by the patient, witnessed by a nurse, and placed in the patient's chart. Additionally, other treatment options including modalities, medications, and physical therapy were reviewed with the patient. After review of previous anaesthesic history and IV conscious sedation the patient was deemed safe to proceed with today?s procedure with IV conscious sedation as ASA class II designation. Safety time-out was performed to confirm patient ID, procedure to be performed and site of procedure. IV sedation was accomplished with a combination of 2mg of Versed administered by the RN after DO order, titrated to patient comfort during the course of the procedure while the patient remained responsive to all verbal commands. In the prone position, following sterile prep and drape of the lumbar region, the L5/S1 translaminar space was identified fluoroscopically. The skin was anesthetized via a 25-gauge, 1.5-inch needle with 1% lidocaine solution. At this point, a 22-gauge short bevel spinal needle was atraumatically introduced and advanced under fluoroscopic guidance into the region of the L5/S1 translaminar space. Depth was confirmed on lateral view. Radiological data, including multiple fluoroscopic views of the lumbar spine, reveal a spinal needle at the L5/S1 translaminar space. Lateral views then show placement of the needle in the epidural space. Subsequent views show contrast material flowing superiorly and inferiorly in the epidural space. No vascular or intrathecal uptake is observed. At this point, using loss of resistance technique with saline and air, the epidural space was entered. This was confirmed following negative aspiration with injection of approximately 1.5cc of Isovue 200, showing excellent epidural flow without vascular or intrathecal uptake. At this point, 1 cc of 1% lidoca ine solution combined with 3cc or 20mg of dexamethasone and 6mg of betamethasone was injected without incident. The patent tolerated the procedure without signs of symptoms of complications prior to transfer to the recovery area for further monitoring. The patient was then transferred to the recovery area where they were observed for an appropriate period of time after the injection. The patient reported a VAS score of 6 prior to the procedure and a post-procedure VAS of 0. POST OP INSTRUCTIONS The patient was provided a Pain Log to continue to record their response to the target-specific procedure prior to follow-up visit with their referring physician. Additionally, specific post-injection care instructions and a contact number to our office were provided if concerns arise regarding possible complications associated with the procedure are suspected.
== END 2022-11-11 10:18 | disposition home or self-care (01) ==
LOC: RAD 08:29
PROVIDERS: PCP Nurse Practitioner; Referring Provider Physical Medicine & Rehabilitation; Visit Provider Physical Medicine & Rehabilitation
DX: M51.17 Intervertebral disc disorders with radiculopathy, lumbosacral region (principal); M48.07 Spinal stenosis, lumbosacral region
CPT/HCPCS: 62323; 99152; J0702; J1100; J2250; J3490

== ENCOUNTER → 2023-07-27 14:52 | Outpatient (CLI) | payer MEDICARE, OTHER, SELFPAY ==
[2022-08-25 08:33] VITALS: BMI 28.3
== END ==
PROVIDERS: PCP Nurse Practitioner; Referring Provider Nurse Practitioner; Visit Provider Nurse Practitioner
DX: R94.31 Abnormal electrocardiogram [ECG] [EKG] (principal)
CPT/HCPCS: 93005; 93010

== ENCOUNTER → 2023-07-28 07:34 | Outpatient (CLI) | payer MEDICARE, OTHER, SELFPAY ==
[2022-08-25 08:33] VITALS: BMI 28.3
[2023-07-28 09:40] LABS: Alanine Aminotransferase 24 IU/L (<50); Albumin 4.1 g/dL (3.5-5.0); Albumin Globulin Ratio 1.6 (1.0-2.8); Alkaline Phosphatase 73 U/L (38-126); Aspartate Aminotransferase 26 IU/L (17-59); BUN Creatinine Ratio 13.2 (6-22); Bilirubin Total 0.7 mg/dL (0.2-1.3); Blood Urea Nitrogen 10 mg/dL (9-20); Carbon Dioxide 27 mmol/L (22-32); Chloride 105 mmol/L (98-107); Cholesterol 205 mg/dL (140-199); Estimated Glomerular Filt Rate > 60 mL/min (>60); Globulin 2.6 g/dL (1.7-4.1); Glucose 118 mg/dL (80-110); HDL Cholesterol 59 mg/dL (40-60); HEMOLYSIS < 15 (0-50); LDL Cholesterol Calculated 128 mg/dL (<100); Potassium 4.3 mmol/L (3.4-5.1); Sodium 137 mmol/L (137-145); Total Protein 6.7 g/dL (6.3-8.2); Triglycerides 92 mg/dL (35-150)
[2023-07-28 09:56] LABS: Free T3, Triiodothyronine Free 3.66 pg/mL (2.77-5.27)
[2023-07-28 10:09] LABS: Thyroid Stimulating Hormone 0.799 uIU/mL (0.47-4.68)
== END ==
PROVIDERS: PCP Nurse Practitioner; Referring Provider Nurse Practitioner; Visit Provider Nurse Practitioner
DX: E78.5 Hyperlipidemia, unspecified (principal); G89.29 Other chronic pain; Z79.899 Other long term (current) drug therapy
CPT/HCPCS: 36415; 80053; 80061; 84439; 84443; 84481

== ENCOUNTER → 2023-09-18 07:38 | Outpatient (CLI) | payer MEDICARE, OTHER, SELFPAY ==
[2022-08-25 08:33] VITALS: BMI 28.3
--- NOTE | 2023-09-18 07:40 | DI.NM.S_ITS ---
PROCEDURE: NM EXERCISE TREADMILL NON NUC COMPARISON: None. INDICATIONS: HTN, chest tightness FINDINGS: The patient exercised for 7 minutes and 0 seconds reaching 7.8 METs, ISAAC -4%. 95% of maximum predicted heart rate achieved. Appropriate BP response to exercise. No angina and no diagnostic ST changes during exercise or recovery. Rare PACs and rare PVCs present. IMPRESSION: Low risk, normal treadmill ECG only stress test with average exercise tolerance (7.8METS, ISAAC -4%). Target heart rate reached. No angina during the study. Dictated by: Jacinta Brice MD on 09/18/2023 at 16:37 Approved by: Jacinta Brice MD on 09/18/2023 at 16:40
--- NOTE | 2023-09-18 07:40 | DI.ECHO.S_ITS ---
[facility] +---------+ : : [address] [place] : : : : [id number] : : : : Phone: [phone]+ Echocardiogram Report + + :Name: RICKY PRO Study Date: 09/18/2023 Height: 73 in : :[facility] ReadingLocation: Weight: 225 lb : : Gender: Male BSA: 2.3 m2 : :: 1950 Age: 73 yrs BP: 125/88 mmHg: :Reason For Study: HYPERTENSION, CHEST TIGHTNESS : :Ordering Physician: ALBERTO, : :DOMINIC Performed By: Mary Lou : :Referring: DOMINIC DOMINGUEZ : + + Interpretation Summary The ejection fraction is estimated to be 55-60%. Diastolic parameters suggest probable normal left ventricular diastolic function and normal filling pressures. The right ventricle is normal in size and function. No significant valvular abnormality. The IVC is of normal diameter and collapses greater than 50% with a sniff. This suggests a low right atrial pressure of 3 mm Hg. Procedure: A two-dimensional transthoracic echocardiogram with color flow and Doppler was performed. The study quality was technically adequate. There is no prior echocardiogram noted for this patient. The patient was in sinus rhythm with heart rates between 75-86 bpm during the exam. Left Ventricle: The left ventricle is normal in size and wall thickness. The ejection fraction is estimated to be 55-60%. There are no obvious focal wall motion abnormalities noted but poor endocardial definition reduces the sensitivity for the detection of such. Diastolic parameters suggest probable normal left ventricular diastolic function and normal filling pressures. Right Ventricle: The right ventricle is normal in size and function. Atria: The left atrial size is normal. Right atrial size is normal. There is no Doppler evidence for an interatrial shunt. Mitral Valve: The mitral valve is normal in structure and function. There is trace mitral regurgitation. Aortic Valve: The aortic valve is trileaflet. The aortic valve opens well. There is no aortic valve stenosis. No aortic regurgitation is present. Tricuspid Valve: The tricuspid valve is normal in structure and function. There is trace tricuspid regurgitation. Pulmonic Valve: The pulmonic valve leaflets are thin and pliable; valve motion is normal. There is trace pulmonic regurgitation. Great Vessels: The aortic root is normal size. The dimensions of the ascending aorta are normal. The IVC is of normal diameter and collapses greater than 50% with a sniff. This suggests a low right atrial pressure of 3 mm Hg. Pericardium/ Pleura There is no pericardial effusion. There is no pleural effusion. MMode/2D Measurements & Calculations LVIDd: 5.0 cm LVOT diam: 2.4 cm LVIDs: 3.2 cm Ao root diam: 3.7 cm FS: 37.0 % asc Aorta Diam: 3.3 cm EPSS: 0.58 cm IVSd: 1.0 cm LVPWd: 0.80 cm LV tello. diameter/BSA (cm/m^2): 2.2 LV sys. diameter/BSA (cm/m^2): 1.4 LA A2 area: 23.4 cm2 RA long axis: 5.7 cm LA A4 area: 19.0 cm2 RA area: 19.3 cm2 LA length (vol): 5.3 cm RA vol: 55.7 ml LA vol: 71.7 ml RA : 24.6 ml/m2 LA vol index: 31.7 ml/m2 IVC diam: 1.5 cm RVD1 (basal): 4.0 cm RVD2 (mid): 3.2 cm TAPSE: 2.2 cm Doppler Measurements & Calculations Ao V2 max: 148.7 cm/sec LVOT Max Kwesi: 78.5 cm/sec Ao V2 mean: 113.6 cm/sec LV V1 max P.5 mmHg Ao max P.8 mmHg LV V1 VTI: 18.5 cm Ao mean P.6 mmHg MELISSA(I,D): 2.7 cm2 Ao V2 VTI: 32.0 cm MELISSA(V,D): 2.4 cm2 sev ratio: 0.58 MELISSA indexed to BSA (cm^2/m^2): 1.2 MV E max kwesi: 72.1 cm/sec PA V2 max: 96.1 cm/sec MV A max kwesi: 68.9 cm/sec PA V2 mean: 69.4 cm/sec MV E/A: 1.0 PA mean P.1 mmHg Med Peak E' Kwesi: 8.8 cm/sec PA pr(Accel): 17.3 mmHg E/E' med: 8.2 Lat Peak E' Kwesi: 11.3 cm/sec E/E' lat: 6.4 E/e' average: 7.3 MV dec time: 0.25 sec SVLVOT): 85.2 ml Reading Physician:PM
== END ==
LOC: RAD 07:39
PROVIDERS: PCP Nurse Practitioner; Referring Provider Nurse Practitioner; Visit Provider Nurse Practitioner
DX: R06.02 Shortness of breath (principal); R07.89 Other chest pain; I10 Essential (primary) hypertension
CPT/HCPCS: 93017; 93306

== ENCOUNTER 2024-01-14 07:55 | Outpatient (CLI) | payer MEDICARE, OTHER, SELFPAY ==
[2022-08-25 08:33] VITALS: BMI 28.3
[2024-01-14] VITALS (8 sets, daily range): BP systolic 130–149; BP diastolic 70–85; PULSE 67–81; RESP 11–19; TEMP 36.8; O2SAT 96–99
--- NOTE | 2024-01-14 08:45 | DI.RAD.S_ITS ---
PROCEDURE: PAIN L INTERLAMINAR/CAUDAL INJ INDICATIONS: para left L5/S1 TL CAROLINE COMPARISON: [facility], XA, PAIN L INTERLAMINAR/CAUDAL INJ, 11/11/2022, 9:51. FINDINGS: Fluoroscopic spot filming was performed to verify placement of spinal needles at the L5-S1 level(s), as labeled on the films. Appropriate location(s) of the needle tip(s) was confirmed by injection of iodinated contrast. Postsurgical changes of prior lumbar fusion and interbody spacers are unchanged. IMPRESSION: Fluoroscopic support for left L5-S1 CAROLINE. Please see separate procedure note for further details. Dictated by: Matt Brewer M.D. on 01/14/2024 at 10:28 Approved by: Matt Brewer M.D. on 01/14/2024 at 10:29
[2024-01-14] MEDS: MIDAZOLAM 2 MG/2 ML VIAL IV (09:12)
[2024-01-14] MEDS: BUPIVACAINE 0.25% (PF) VIAL 2 ML INJ (09:14)
[2024-01-14] MEDS: iopamidoL 15 ML VIAL 3 ML INJ (09:14)
[2024-01-14] MEDS: DEXAMETHASONE 10 MG/ML VIAL INJ (09:15)
[2024-01-14] MEDS: BETAMETHASONE 30 MG/5 ML MDV 6 MG INJ (09:15)
--- NOTE | 2024-01-14 09:27 | P.PCN_ITS ---
Date/Time/Diagnoses Date of procedure: 01/14/24 Time of procedure: 09:27 Pre-procedure diagnosis: 1. HNP WITH RADICULAR FEATURES, 2. MULTILEVEL CENTRAL STENOSIS, Post-procedure diagnosis: same Procedure Notes Procedure: 1. FLUOROSCOPICALLY GUIDED CONTRAST CONTROLLED INTERLAMINAR EPIDURAL STEROID INJECTION - L5/S1 Indications: Marcial is referred by LUIS F Joya for treatment of Bilateral Foraminal Stenosis L>R LE symptoms. Physician: Marcial Jones Total Fluoroscopy time (seconds): 9 Total sedation minutes: 11 Complications: none Procedure in detail & Post-procedure care: FINDINGS Multilevel Central Spinal Stenosis with Nerve Root Compression DESCRIPTION OF PROCEDURE Fluoroscopically guided, contrast-controlled L5/S1 translaminar epidural steroid injection. Following review of allergy and review of potential side effects and complications, including, but not necessarily limited to, infection, allergic reaction, local tissue breakdown, temporary as well as permanent nerve injury, paralysis, stroke and possible , the patient indicated that the patient understood and agreed to proceed. An informed consent document was signed by the patient, witnessed by a nurse, and placed in the patient's chart. Additionally, other treatment options including modalities, medications, and physical therapy were reviewed with the patient. After review of previous anaesthesic history and IV conscious sedation the patient was deemed safe to proceed with today?s procedure with IV conscious sedation as ASA class II designation. Safety time-out was performed to confirm patient ID, procedure to be performed and site of procedure. IV sedation was accomplished with a combination of 2mg of Versed administered by the RN after DO order, titrated to patient comfort during the course of the procedure while the patient remained responsive to all verbal commands. In the prone position, following sterile prep and drape of the lumbar region, the L5/S1 translaminar space was identified fluoroscopically. The skin was anesthetized via a 25-gauge, 1.5-inch needle with 1% lidocaine solution. At this point, a 22-gauge short bevel spinal needle was atraumatically introduced and advanced under fluoroscopic guidance into the region of the L5/S1 translaminar space. Depth was confirmed on lateral view. Radiological data, including multiple fluoroscopic views of the lumbar spine, reveal a spinal needle at the L5/S1 translaminar space. Lateral views then show placement of the needle in the epidural space. Subsequent views show contrast material flowing superiorly and inferiorly in the epidural space. No vascular or intrathecal uptake is observed. At this point, using loss of resistance technique with saline and air, the epidural space was entered. This was confirmed following negative aspiration with injection of approximately 1.5cc of Isovue 200, showing excellent epidural flow without vascular or intrathecal uptake. At this point, 1 cc of 1% lidocain e solution combined with 2cc or 10mg of dexamethasone and 6mg of betamethasone was injected without incident. The patent tolerated the procedure without signs of symptoms of complications prior to transfer to the recovery area for further monitoring. The patient was then transferred to the recovery area where they were observed for an appropriate period of time after the injection. The patient reported a VAS score of 9 prior to the procedure and a post-procedure VAS of 2. POST OP INSTRUCTIONS The patient was provided a Pain Log to continue to record their response to the target-specific procedure prior to follow-up visit with their referring physician. Additionally, specific post-injection care instructions and a contact number to our office were provided if concerns arise regarding possible complications associated with the procedure are suspected.
--- NOTE | 2024-01-14 10:36 | PC.NURSE ---
Late Entry: Discharge Patient discharged home. Patient able to stand at chair side with this RN as SBA and march in place without help. Patient reported that pain was relieved though he could still feel the neuropathy and drop foot. Patient hopeful that the steroid injection will help in time. 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
== END 2024-01-14 09:42 | disposition home or self-care (01) ==
LOC: RAD 07:56
PROVIDERS: PCP Nurse Practitioner; Referring Provider Physical Medicine & Rehabilitation; Visit Provider Physical Medicine & Rehabilitation
DX: M51.17 Intervertebral disc disorders with radiculopathy, lumbosacral region (principal); M48.07 Spinal stenosis, lumbosacral region
CPT/HCPCS: 62323; 99152; J0702; J1100; J2250; J3490

== ENCOUNTER → 2024-03-31 17:13 | Outpatient (CLI) | payer MEDICARE, OTHER, SELFPAY ==
[2024-03-31 17:06] VITALS: BMI 28.3
--- NOTE | 2024-03-31 17:14 | DI.MRI.S_ITS ---
PROCEDURE: MR LUMBAR SPINE WO CON INDICATIONS: Sudden onset back pain and mobilty loss TECHNIQUE: Noncontrast sagittal T1 spin echo and T2 fast echo, sagittal STIR, and T2 fast spin echo through the lumbar spine. In cases with scoliosis, additional coronal T2 fast spin echo may be performed. COMPARISON: [facility], MR, MR LUMBAR SPINE WO CON, 02/11/2022, 7:58. FINDINGS: Image quality: Diagnostic Alignment and Curvature: Status post L4-S1 posterior spinal fusion using bilateral transpedicle screws and paired posterior vertical rods. Bone Marrow: Marrow is of normal overall signal. No acute vertebral body compression fractures. Spinal Cord: Conus medullaris terminates at the L1 level. Visualized cord demonstrates normal signal and size. Paraspinous Soft Tissues: No paravertebral masses. Postsurgical changes in the lower lumbar paravertebral subcutaneous tissue. There is L2-L3 mild central disc herniation with mild effacement of the spinal canal, slightly increased compared to prior pre-surgical MRI 02/11/2022.. IMPRESSION: Status post L4-S1 posterior spinal fusion. Mild L2-L3 spinal canal stenosis. Approved by: Beatriz Serrano M.D.,Ph.D. on 03/31/2024 at 21:36
== END ==
LOC: MRI 17:14
PROVIDERS: PCP Nurse Practitioner; Referring Provider Nurse Practitioner; Visit Provider Nurse Practitioner
DX: M54.17 Radiculopathy, lumbosacral region (principal); M48.061 Spinal stenosis, lumbar region without neurogenic claudication; T84.498A Other mechanical complication of other internal orthopedic devices, implants and grafts, initial encounter; M54.9 Dorsalgia, unspecified; Z98.1 Arthrodesis status
CPT/HCPCS: 72148

== ENCOUNTER 2024-04-19 13:53 | Outpatient (CLI) | payer MEDICARE, OTHER, SELFPAY ==
[2024-03-31 17:06] VITALS: BMI 28.3
[2024-04-19] VITALS (9 sets, daily range): BP systolic 121–138; BP diastolic 56–107; PULSE 80–92; RESP 15–20; TEMP 36.8; O2SAT 96–100
--- NOTE | 2024-04-19 14:30 | DI.RAD.S_ITS ---
PROCEDURE: PAIN L/S TRANSFORAMINAL INJECT INDICATIONS: Right L2-3 transforaminal CAROLINE COMPARISON: None. FINDINGS: Fluoroscopic spot filming was performed to verify placement of spinal needles at the L2-L3 level(s), as labeled on the films. Appropriate location(s) of the needle tip(s) was confirmed by injection of iodinated contrast. Partially seen lumbar fusion hardware IMPRESSION: L2-L3 injections, see operative note for full details. Dictated by: Yoav Da Silva M.D. on 04/19/2024 at 17:17 Approved by: Yoav Da Silva M.D. on 04/19/2024 at 17:18
[2024-04-19] MEDS: MIDAZOLAM 2 MG/2 ML VIAL IV (14:44)
[2024-04-19] MEDS: iopamidoL 15 ML VIAL 3 ML INJ (14:49)
[2024-04-19] MEDS: DEXAMETHASONE 10 MG/ML VIAL INJ (14:49)
[2024-04-19] MEDS: BETAMETHASONE 30 MG/5 ML MDV 6 MG INJ (14:49)
[2024-04-19] MEDS: BUPIVACAINE 0.25% (PF) VIAL 2 ML INJ (14:49)
--- NOTE | 2024-04-19 15:05 | PM.PROC.IR.1 ---
Date/Time/Diagnoses Date of procedure: 04/19/24 Time of procedure: 15:05 Pre-procedure diagnosis: 1. FORAMINAL STENOSIS WITH LE SYMPTOMS Post-procedure diagnosis: same Procedure Notes Procedure: 1. FLUOROSCOPICALLY GUIDED CONTRAST CONTROLLED TRANSFORAMINAL EPIDURAL STEROID INJECTION - RIGHT L2/3 TFESI Indications: Marcial is referred by LUIS F Joya for treatment of Foraminal Stenosis with Right LE Symptoms Physician: Marcial Jones Total Fluoroscopy time (seconds): 10 Total sedation minutes: 14 Complications: none Procedure in detail & Post-procedure care: FINDINGS Foraminal Nerve Root Compression secondary to disc disease and facet hypertrophy DESCRIPTION OF PROCEDURE Following review of allergy and review of potential side effects and complications, including, but not necessarily limited to, infection, allergic reaction, local tissue breakdown, stroke, temporary or permanent nerve injury, paralysis, and possible , the patient indicated that the patient understood and agreed to proceed. An informed consent document was signed by the patient, witnessed by a nurse, and placed in the patient's chart. Additionally, other treatment options including medications, modalities, and physical therapy were reviewed with the patient. After review of previous anaesthesic history and IV conscious sedation the patient was deemed safe to proceed with today?s procedure with IV conscious sedation as ASA class II designation. Safety time-out was performed to confirm patient ID, procedure to be performed and site of procedure. IV sedation was accomplished with a combination of 2mg of Versed was administered by the RN after DO order, titrated to patient comfort during the course of the procedure while the patient remained responsive to all verbal commands In the prone position following sterile prep and drape of the lumbar region, the right L2/3 posterior neuroforamen was identified fluoroscopically. The skin was anesthetized via a 25-gauge 1.5-inch needle with 1% lidocaine solution. At this point, a 25-gauge 3.5-inch spinal needle was atraumatically introduced and advanced under fluoroscopic guidance through the posterior right L2/3 neuroforamen to approximately the anterior aspect of the canal. Depth was confirmed on lateral view. Following negative aspiration, injection of approximately 1.5 cc of Isovue 200 under live fluoroscopy in the AP view confirmed excellent flow along the nerve root, into the epidural space without vascular or intrathecal uptake observed Radiological data, including multiple fluoroscopic views of the lumbosacral spine, reveal a spinal needle at the right L2/3 posterior neuroforamen. Subsequent views show flow of contrast material flowing superiorly and inferiorly along the nerve root confirming epidural flow. Subsequently, a test dose of 1.5 cc of 1% lidocaine solution was administered and patient was observed for two minutes for signs or symptoms of complications, including abdominal pain, shortness of breath, bilateral upper or lower extremity weakness, nausea and vomiting, prior to steroid injection. At this point, a total of 2cc or 10mg of dexamethasone and 6mg of betamethasone was injected without incident. The patient tolerated the procedure well without signs or symptoms of complications prior to transfer to the recovery area continued monitoring without incident. The patient was then transferred to the recovery area where they were observed for an appropriate time after the injection. The patient reported a VAS score of 7 prior to the procedure and a post-procedure VAS of 1. POST OP INSTRUCTIONS The patient was provided a Pain Log to continue to record their response to the target-specific procedure prior to follow-up visit with their referring physician. Additionally, specific post-injection care instructions and a contact number to our office were provided if concerns arise regarding possible complications associated with the procedure are suspected.
== END 2024-04-19 15:20 | disposition home or self-care (01) ==
PROVIDERS: PCP Nurse Practitioner; Referring Provider Physical Medicine & Rehabilitation; Visit Provider Physical Medicine & Rehabilitation
DX: M51.16 Intervertebral disc disorders with radiculopathy, lumbar region (principal)
CPT/HCPCS: 64483; 99152; J0702; J1100; J2250; J3490

== ENCOUNTER → 2024-08-24 12:05 | Outpatient (CLI) | payer MEDICARE, OTHER, SELFPAY ==
[2024-03-31 17:06] VITALS: BMI 28.3
--- NOTE | 2024-08-24 12:06 | DI.RAD.S_ITS ---
PROCEDURE: XR SHOULDER RT MIN 2V INDICATIONS: right shoulder pain, fall TECHNIQUE: Three views of the right shoulder were acquired. COMPARISON: None. 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 Acromioclavicular and glenohumeral joints: The acromioclavicular joint shows mild degeneration. Glenohumeral joint is normal. Soft tissues: No soft tissue swelling, calcification or mass. IMPRESSION: Chronic findings as described Dictated by: Gregg Espitia M.D. on 08/26/2024 at 13:17 Approved by: Gregg Espitia M.D. on 08/26/2024 at 13:18
[2024-08-24 14:46] LABS: Hematocrit 43.2 % (41-53); Hemoglobin 14.8 g/dL (13.5-17.5); Mean Corpuscular HGB Conc 34.2 % (30-36); Mean Corpuscular Hemoglobin 30.7 PG (26-34); Mean Corpuscular Volume 89.5 fL (80-100); Platelet Count 287 X10^3/uL (150-400); Red Blood Cell Count 4.82 X10^6/uL (4.5-5.9); White Blood Cell Count 5.7 X10^3/uL (4.5-11.0)
[2024-08-24 15:12] LABS: Alanine Aminotransferase 22 IU/L (<50); Albumin 4.3 g/dL (3.5-5.0); Albumin Globulin Ratio 1.9 (1.0-2.8); Alkaline Phosphatase 65 U/L (38-126); Aspartate Aminotransferase 29 IU/L (17-59); Bilirubin Total 0.6 mg/dL (0.2-1.3); Blood Urea Nitrogen 15 mg/dL (9-20); Calcium 9.1 mg/dL (8.4-10.2); Carbon Dioxide 28 mmol/L (22-32); Chloride 105 mmol/L (98-107); Cholesterol 214 mg/dL (140-199); Estimated Glomerular Filt Rate > 60 mL/min (>60); Globulin 2.3 g/dL (1.7-4.1); Glucose 94 mg/dL (80-110); HDL Cholesterol 65 mg/dL (40-60); HEMOLYSIS < 15 (0-50); LDL Cholesterol Calculated 135 mg/dL (<100); Potassium 4.2 mmol/L (3.4-5.1); Sodium 138 mmol/L (137-145); Total Protein 6.6 g/dL (6.3-8.2); Triglycerides 71 mg/dL (35-150)
[2024-08-24 15:39] LABS: Prostate Specific Antigen 4.49 ng/mL (0.10-4.00)
[2024-08-24 15:41] LABS: TSH w/ Reflex to FT4 0.64 uIU/mL (0.47-4.68)
== END ==
PROVIDERS: PCP Internal Medicine; Referring Provider Internal Medicine; Visit Provider Internal Medicine
DX: M19.011 Primary osteoarthritis, right shoulder (principal); E78.2 Mixed hyperlipidemia; S46.011A Strain of muscle(s) and tendon(s) of the rotator cuff of right shoulder, initial encounter; R53.83 Other fatigue; W19.XXXA Unspecified fall, initial encounter
CPT/HCPCS: 36415; 73030; 80053; 80061; 84153; 84443; 85027

== ENCOUNTER 2025-02-09 10:56 | Emergency (ER) | payer MEDICARE, OTHER, SELFPAY ==
[2024-03-31 17:06] VITALS: BMI 28.3
[2025-02-09 11:30] VITALS: BP 154/85; PULSE 67; RESP 18; TEMP 36.6; O2SAT 97; BMI 30.3
--- NOTE | 2025-02-09 11:48 | DI.RAD.S_ITS ---
PROCEDURE: XR ABDOMEN 1V INDICATIONS: bloating TECHNIQUE: One view of the abdomen acquired. COMPARISON: [facility], CT, CT ABDOMEN PELVIS WITHOUT CONTRAST, 02/02/2025, 14:30. FINDINGS: Surgical changes and devices: A thoracic spine stimulator can be seen. Lower lumbar spine fixation hardware is seen. Bowel: Bowel gas pattern is normal. The volume of stool within the colon is not excessive. Soft tissues: No suspicious abdominal calcifications. Visualized solid organ contours appear normal in size. Bones: No suspicious bony lesions. Age-appropriate bony degenerative changes are seen. IMPRESSION: Nonobstructive bowel gas pattern. The volume of stool within the colon is not excessive. Postoperative and degenerative changes are seen. Dictated by: Royer Sanchez M.D. on 02/09/2025 at 11:12 Approved by: Royer Sanchez M.D. on 02/09/2025 at 11:13
--- NOTE | 2025-02-09 12:47 | ED_ITS ---
HPI - General Adult General Chief complaint: Abdominal Pain Stated complaint: Sent from [facility] stomach pain x 7 days after Surgery Time Seen by Provider: 02/09/25 11:41 Source: patient Mode of arrival: Ambulatory History of Present Illness HPI narrative: 74-year-old gentleman with a history of chronic back pain, on February 02 he had a spinal cord stimulator placed. After he awoke from anesthesia was complaining of increased abdominal pain and bloating, CT scan of the abdomen done at that time did not reveal acute pathology. The stimulator is working quite well for his chronic back pain but he continues to complain of bloating. He notes that he is passing gas, he had a small hard bowel movement this morning still quite uncomfortable and comes in for further evaluation. He is not having nausea, vomiting no chest pain no palpitations, no fevers or chills. Related Data Home Medications ?Medication ?Instructions ?Recorded ?Confirmed triamcinolone acetonide 0.5 % 1 applic topical DAILY R angy on body 12/23/23 01/03/25 topical ointment Previous Rx's ?Medication ?Instructions ?Recorded albuterol sulfate 90 mcg/actuation 2 puff inhalation Q 6H PRN 10/04/24 aerosol inhaler shortness of breath or wheez ing #6.7 grams ipratropium 20 mcg-albuterol 100 1 puff inhalation BID PRN 10/06/24 mcg/actuation mist for inhalation Shortness Of Breath Or Wheezing #4 (Combivent Respimat) grams fluticasone propionate 115 2 puff inhalation BID #3 gr ams 10/11/24 mcg-salmeterol 21 mcg/actuation HFA inhaler (Advair HFA) sodium,potassium,mag sulfates 17.5 See Rx Instructions PO .COMPLEX 01/27/25 gram-3.13 gram-1.6 gram oral soln #354 mL (Suprep Bowel Prep Kit) Allergies Allergy/AdvReac Type Severity Reaction Status Date / Time chlorhexidine (CHLORHEXIDINE) Allergy Severe Itching Verified 02/09/25 11:30 and rash montelukast Allergy Severe Rash Verified 02/09/25 11:30 duloxetine AdvReac Intermediate dysphoria Verified 02/09/25 11:30 amitriptyline AdvReac Mild hoarseness Verified 02/09/25 11:30 Review of Systems Review of Systems Narrative: Pertinent positive and negative findings as per HPI Patient History Medical History History of posttraumatic stress disorder (PTSD) Elevated PSA Strain of tendon of right rotator cuff Depression, major, recurrent Asthma, mild intermittent Mixed hyperlipidemia Herniated nucleus pulposus, L2-3 right 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 Lumbosacral radiculopathy at L5 BPPV (benign paroxysmal positional vertigo) Chronic pain Foot drop, left PTSD (post-traumatic stress disorder) Sciatica Eczema Chronic back pain Uses hearing aid Hearing loss Arthritis Sebaceous cyst (08/25/16) Lipoma of forearm (08/25/16) History of colonic polyps (08/25/16) Radicular low back pain (07/02/15) Dupuytren's contracture of both hands (07/02/15) Surgical History History of carpal tunnel surgery of right wrist (2020) Hx of colonoscopy Hx of repair of left rotator cuff (2010) Hx of umbilical hernia repair (2011) History of lumbar surgery (~2017) Social History marital status: details: (Oral), grown children, retired [employer], police household members: spouse pets and animals: Yes education level: college leisure activities: fishing and other other: Grand kid's seatbelt use: always helmet use: Yes water heater temp set < 120 deg: No working smoke detector in home: Yes fire extinguisher in home: Yes carbon monox detector in home: Yes firearms in home: Yes do you feel safe at home: Yes Tobacco: How many years used: 15 quit status: quit date established second hand exposure: No alcohol intake: current substance use type: does not use during the past year weight has: remained stable well-balanced diet: daily or most days daily servings fruits/ve-1 caffeine: Yes (2+ drinks per day, rare on soda) eating out: rarely or never frequency: 1-2 times per week duration: 30-45 minutes/day additional social history: Physical Activities: Great Grand kid's. Disabilities: Hearing loss (Tinnitus), Vision Deficiencies Smoking Status: Never smoker alcohol intake frequency: 0-2 drinks per day Alcohol type: beer Exam Initial Vital Signs Initial Vital Signs: Vital Signs Temperature 97.8 F 02/09/25 11:30 Pulse Rate 67 02/09/25 11:30 Respiratory Rate 18 02/09/25 11:30 Blood Pressure 154/85 H 02/09/25 11:30 Pulse Oximetry 97 02/09/25 11:30 Oxygen Delivery Method Room Air 02/09/25 11:30 General: Healthy appearing, in no acute distress. Able to give a complete and coherent history. Well-nourished well-developed HEENT: Moist mucous membranes, normal sclera with reactive pupils, Respiratory: Lungs are clear to auscultation, no wheezing no rales no rhonchi. Full and symmetrical air movement Cardiac: Regular rate and rhythm no murmurs no bruits Abdomen: Soft, mild distention Skin: Warm and dry, no rashes Extremities: No trauma, well perfused Psych: Cooperative, appropriate insight and affect Course Orders Ordered: ED Orders 02/09/25 11:48 XR abdomen 1V Stat Vital Signs Vital signs: Vital Signs - 8 hr 02/09/25 11:30 Temperature 97.8 F Pulse Rate 67 Respiratory Rate 18 Blood Pressure 154/85 H Pulse Oximetry 97 Oxygen Delivery Method Room Air Medical Decision Making MDM Narrative Medical decision making narrative: 74-year-old gentleman who had a nerve stimulator placed on the has had abdominal distention since then. CT scan immediately postprocedure did not show obvious abnormalities. He is passing gas. He has been using single packet of MiraLax, Dulcolax and a suppository and today finally had a small hard bowel movement. No fevers no vomiting. X-ray shows nonspecific bowel gas pattern and he does not have a large volume of stool appreciated. There was no obstruction and no free air. Findings reviewed with him. Discussed ileus after surgical procedures and associated with pain. Recommended enough MiraLax today to begin to get his bowels to move. We talked about the very safe side effect profile with MiraLax and the appropriate dose being ?enough to begin having your bowels move?. He expressed understanding. There was no indication for further workup or evaluation today. There was no sign of acute surgical abdomen and no need for surgical consult. Questions are answered and he is safe for discharge Discharge Plan Departure Patient Disposition: Home Clinical Impression: Abdominal distension Instructions: DI for Ileus Activity Restrictions/Additional Instructions: Thank you for coming in today Your x-ray shows air through out your bowels with no free air or suggestion of bowel perforation. You do not have a large volume of stool obstructing. I suspect that the recent surgery caused a mild slowing of your large and small colon and this is causing the distention that you are experiencing. This will heal itself. Resumption of usual diet, increase activity we will all help. I would recommend that today you take a dose of MiraLax with a large glass of water and repeat this every hour until you begin to have your bowels move. For some people this takes a single dose for some people this takes up to 10 doses. Once it feels that your bowels are moving you do not need to continue with the this larger dose of MiraLax. I am glad that you are nerve stimulator is working for you If you find that you are getting worse or develop any new symptoms, please feel free to return to the emergency department for further evaluation. Prescriptions: No Action albuterol sulfate 90 mcg/actuation HFA aerosol inhaler 2 puff INHALATION Q6H PRN (Reason: shortness of breath or wheezing) Qty: 6.7 3RF Rx Instructions: 2 puffs inh q6 hours as needed for shortness of breath, wheezing, cough Combivent Respimat 20-100 mcg/actuation mist 1 puff INHALATION BID PRN (Reason: Shortness Of Breath Or Wheezing) Qty: 4 2RF fluticasone propion-salmeterol [Advair HFA] 115-21 mcg/actuation HFA aerosol inhaler 2 puff inhalation BID Qty: 3 3RF Rx Instructions: 2 inhalations orally twice per day routinely sodium,potassium,mag sulfates [Suprep Bowel Prep Kit] 17.5-3.13-1.6 gram recon soln See Rx Instructions PO .COMPLEX Qty: 354 0RF Rx Instructions: DILUTE; drink full amount early evening before AND next morning at least 2 hr before procedure; follow w 32 oz. water PO triamcinolone acetonide 0.5 % ointment 1 applic topical DAILY Referrals: Dwaine Lee MD [Primary Care Provider, Internal Medicine] Stand Alone Forms: Patient Portal/API
[2025-02-09 13:07] VITALS: BP 136/87; PULSE 71; RESP 16; TEMP 36.6; O2SAT 99
== END 2025-02-09 13:10 | disposition home or self-care (01) ==
PROVIDERS: Emergency Provider Emergency Medicine; PCP Internal Medicine
DX: R14.0 Abdominal distension (gaseous) (principal)
CPT/HCPCS: 74018; 99281; 99283